=== PATIENT | male | born 1955 | race Caucasian/White ===

== ENCOUNTER 2020-10-31 06:08 | Outpatient (REF) | payer MEDICARE, SELFPAY ==
[2020-10-31 07:28] LABS: Alanine Aminotransferase 22 U/L (0-40); Albumin Level 4.2 g/dL (3.5-5.0); Alkaline Phosphatase 105 U/L (39-117); Aspartate Amino Transferase 26 U/L (5-37); Bilirubin Direct 0.4 mg/dL (0.0-0.5); Bilirubin Total 0.9 mg/dL (0.0-1.0); Cholesterol 96 mg/dL; HDL Cholesterol 29 mg/dL; LDL Cholesterol Calculated 44 mg/dl; Total Protein 6.9 g/dL (6.5-8.0); Triglycerides 115 mg/dL
[2020-10-31 09:27] LABS: Reflex LDLD? No
== END 2020-10-31 06:09 | disposition home or self-care (01) ==
LOC: HO.LAB 06:08
PROVIDERS: Visit Provider Internal Medicine
DX: E78.00 Pure hypercholesterolemia, unspecified (principal)
CPT/HCPCS: 36415; 80061; 80076

== ENCOUNTER 2021-03-07 10:45 | Outpatient (REF) | payer MEDICARE, SELFPAY ==
[2021-03-07 10:48] LABS: MANUAL DIFF FLAG NO
[2021-03-07 11:02] LABS: Basophils Absolute Auto 0.1 X10*3/uL (0.0-0.2); Basophils Percent Auto 0.7 % (0-2); Eosinophils Absolute Auto 0.2 X10*3/uL (0.0-0.4); Eosinophils Percent Auto 2.8 % (0-4); Hematocrit 46.5 % (42-52); Hemoglobin 15.1 g/dl (14.0-18.0); Imm Gran Abs Auto 0.01 X10*3/uL (0.00-0.03); Imm Gran Pct Auto 0.1 % (0.0-0.4); Lymphocytes Absolute Auto 1.9 X10*3/uL (1.2-4.9); Lymphocytes Percent Auto 27.9 % (20-40); Mean Corpuscular HGB Conc 32.5 g/dl (31.0-36.0); Mean Corpuscular Hemoglobin 30.8 pg (27.0-33.0); Mean Corpuscular Volume 94.9 fL (80-98); Mean Platelet Volume 12.3 fL (9.4-12.4); Monocytes Absolute Auto 0.6 X10*3/uL (0.1-1.2); Monocytes Percent Auto 9.3 % (2-11); Neutrophils Absolute Auto 3.9 X10*3/uL (2.0-8.3); Neutrophils Percent Auto 59.2 % (45-73); Platelet Count 167 X10*3/uL (160-400); Red Cell Distribution Width 12.7 % (11.0-16.0); White Blood Count 6.7 X10*3/uL (4.8-10.8)
[2021-03-07 11:15] LABS: Glucose Urine UA 250 MG/DL (NEG); Leukocyte Esterase Urine NEG (NEG); Nitrite Urine NEG (NEG); Specific Gravity - Urine 1.025 (1.005-1.025); Urine Blood NEG (NEG); Urine Ketones 5 MG/DL (NEG); Urine Protein NEG (NEG-TRACE)
[2021-03-07 11:19] LABS: Appearance Urine CLEAR; Color Urine YELLOW
[2021-03-07 11:47] LABS: Alanine Aminotransferase 24 U/L (0-40); Alkaline Phosphatase 97 U/L (39-117); Anion Gap 12 (12-20); Aspartate Amino Transferase 18 U/L (5-37); Bilirubin Total 0.4 mg/dL (0.0-1.0); Blood Urea Nitrogen 21 mg/dL (9-16); Calcium 9.6 mg/dL (8.4-10.2); Carbon Dioxide 26 mmol/L (22-29); Chloride 109 mmol/L (96-108); Cholesterol 97 mg/dL; Estimated Glomerular Filt Rate 41; Glucose Fasting 148 mg/dL (60-99); HDL Cholesterol 30 mg/dL; LDL Cholesterol Calculated 51 mg/dl; Sodium 143 mmol/L (135-145); Total Protein 6.6 g/dL (6.5-8.0); Triglycerides 81 mg/dL
[2021-03-07 12:25] LABS: Reflex LDLD? No
== END 2021-03-07 10:46 | disposition home or self-care (01) ==
LOC: HO.LNP 10:45
PROVIDERS: Visit Provider Internal Medicine
DX: Z00.00 Encounter for general adult medical examination without abnormal findings (principal); I10 Essential (primary) hypertension; E78.00 Pure hypercholesterolemia, unspecified; Z12.5 Encounter for screening for malignant neoplasm of prostate
CPT/HCPCS: 80053; 80061; 81003; 84153; 85025

== ENCOUNTER 2021-04-04 10:42 | Outpatient (REF) | payer MEDICARE, SELFPAY ==
[2021-04-04 12:08] LABS: Blood Urea Nitrogen 23 mg/dL (9-16); Estimated Glomerular Filt Rate 57
== END 2021-04-04 10:43 | disposition home or self-care (01) ==
LOC: HO.LNP 10:42
PROVIDERS: PCP Internal Medicine; Visit Provider Internal Medicine
DX: R79.9 Abnormal finding of blood chemistry, unspecified (principal)
CPT/HCPCS: 82565; 84520

== ENCOUNTER 2021-05-19 12:35 | Outpatient (REF) | payer MEDICARE, SELFPAY ==
[2021-05-19 13:45] LABS: Appearance Urine CLEAR; Color Urine YELLOW; Glucose Urine UA NEG (NEG); Leukocyte Esterase Urine NEG (NEG); Nitrite Urine NEG (NEG); PH 5.5 (5.0-8.0); Specific Gravity - Urine 1.025 (1.005-1.025); Urine Blood NEG (NEG); Urine Ketones NEG (NEG); Urine Protein NEG (NEG-TRACE)
== END 2021-05-19 12:36 | disposition home or self-care (01) ==
LOC: HO.LNP 12:35
PROVIDERS: Visit Provider Internal Medicine
DX: N40.0 Benign prostatic hyperplasia without lower urinary tract symptoms (principal); Z51.81 Encounter for therapeutic drug level monitoring; Z79.01 Long term (current) use of anticoagulants
CPT/HCPCS: 81003; 87086

== ENCOUNTER 2021-05-26 08:12 | Outpatient (REF) | payer MEDICARE, SELFPAY ==
--- NOTE | ~2021-05-26 | US_ITS ---
EXAMINATION: US ABDOMEN COMPLETE CLINICAL INFORMATION: Prostatism. Abdominal pain. COMPARISON: Renal ultrasound 11/13/2017 and 10/08/2012 TECHNIQUE: Real-time imaging of the abdominal viscera. FINDINGS: PANCREAS: The pancreas is obscured by overlying gas. ABDOMINAL AORTA: There is mild atherosclerotic plaque seen in the distal abdominal aorta. There is no aneurysmal dilatation. INFERIOR VENA CAVA: Visualized portions are normal. LIVER: The liver is normal in size. The liver contour is normal. There is increased liver echogenicity No focal hepatic lesion. There is no intrahepatic biliary duct dilatation seen. GALLBLADDER: The gallbladder is physiologically distended without evidence of stones, sludge, polyps or pericholecystic fluid. There is mild gallbladder wall thickening. COMMON BILE DUCT: Normal in caliber measuring 0.6 cm in diameter. RIGHT KIDNEY: There is anechoic cyst in the upper pole measuring 1.6 x 1.6 x 1.3 cm. No hydronephrosis or renal calculi. The kidney measures 10.6 cm in maximum dimension. LEFT KIDNEY: Normal. No hydronephrosis. No renal calculi or focal parenchymal lesions. The kidney measures 11.8 cm in maximum dimension. SPLEEN: Normal. The spleen measures 10.9 cm in maximum dimension. FREE FLUID: None. US/US abdomen complete IMPRESSION: Hepatic steatosis with mild focal sparing around the gallbladder. Anechoic cyst upper pole right kidney. Mild atherosclerotic plaque distal abdominal aorta.
--- NOTE | ~2021-05-26 | US_ITS ---
EXAMINATION: US PELVIS LIMITED (BLADDER) CLINICAL INFORMATION: BPH. COMPARISON: 10/08/2012 TECHNIQUE: Real-time imaging of the bladder. FINDINGS: BLADDER: Well distended and normal. Bilateral ureteral jets are demonstrated. Prevoid bladder volume is 234.4 mL. Postvoid bladder volume is 76.5 mL. PROSTATE: Enlarged significant with a volume of 47 mL. Enlarged median lobe. US/US bladder IMPRESSION: Enlarged prostate resulting in approximately 77 mL postvoid residual. No discrete lesion. Prominence of the median lobe. Normal ureteral jets seen bilaterally.
== END 2021-05-26 08:13 | disposition home or self-care (01) ==
LOC: HO.US 08:12
PROVIDERS: PCP Internal Medicine; Visit Provider Internal Medicine
DX: N40.0 Benign prostatic hyperplasia without lower urinary tract symptoms (principal)
CPT/HCPCS: 76700; 76857

== ENCOUNTER 2021-06-02 13:19 | Outpatient (REF) | payer MEDICARE, SELFPAY ==
[2021-06-02 14:17] LABS: Blood Urea Nitrogen 19 mg/dL (9-16); Estimated Glomerular Filt Rate > 60
== END 2021-06-02 13:20 | disposition home or self-care (01) ==
LOC: HO.LNP 13:19
PROVIDERS: Visit Provider Internal Medicine
DX: R79.9 Abnormal finding of blood chemistry, unspecified (principal)
CPT/HCPCS: 82565; 84520

== ENCOUNTER 2022-03-12 10:44 | Outpatient (REF) | payer MEDICARE, SELFPAY ==
[2022-03-12 10:48] LABS: MANUAL DIFF FLAG NO
[2022-03-12 11:07] LABS: Appearance Urine CLEAR; Color Urine YELLOW; Glucose Urine UA NEG (NEG); Leukocyte Esterase Urine NEG (NEG); Nitrite Urine NEG (NEG); Specific Gravity - Urine >= 1.030 (1.005-1.025); Urine Blood NEG (NEG); Urine Ketones NEG (NEG); Urine Protein NEG (NEG-TRACE)
[2022-03-12 11:08] LABS: Basophils Absolute Auto 0.1 X10*3/uL (0.0-0.2); Eosinophils Absolute Auto 0.2 X10*3/uL (0.0-0.4); Eosinophils Percent Auto 3.1 % (0-4); Hematocrit 45.3 % (42.0-52.0); Hemoglobin 14.9 g/dl (14.0-18.0); Imm Gran Abs Auto 0.02 X10*3/uL (0.00-0.03); Imm Gran Pct Auto 0.3 % (0.0-0.4); Lymphocytes Absolute Auto 1.7 X10*3/uL (1.2-4.9); Lymphocytes Percent Auto 28.4 % (20-40); Mean Corpuscular HGB Conc 32.9 g/dl (31.0-36.0); Mean Corpuscular Hemoglobin 30.5 pg (27.0-33.0); Mean Corpuscular Volume 92.8 fL (80.0-98.0); Mean Platelet Volume 12.2 fL (9.4-12.4); Monocytes Absolute Auto 0.5 X10*3/uL (0.1-1.2); Monocytes Percent Auto 8.9 % (2-11); Neutrophils Absolute Auto 3.6 x10*3/uL (2.0-8.3); Neutrophils Percent Auto 58.3 % (45-73); Platelet Count 178 X10*3/uL (160-400); Red Blood Count 4.88 X10*6/uL (4.60-5.80); Red Cell Distribution Width 13.3 % (11.0-16.0); White Blood Count 6.1 X10*3/uL (4.8-10.8)
[2022-03-12 11:22] LABS: Alanine Aminotransferase 23 U/L (0-40); Albumin Level 4.1 g/dL (3.5-5.0); Alkaline Phosphatase 96 U/L (39-117); Anion Gap 12 (12-20); Aspartate Amino Transferase 24 U/L (5-37); Bilirubin Total 0.8 mg/dL (0.0-1.0); Blood Urea Nitrogen 25 mg/dL (9-16); Calcium 9.4 mg/dL (8.4-10.2); Carbon Dioxide 23 mmol/L (22-29); Chloride 110 mmol/L (96-108); Cholesterol 85 mg/dL; Estimated Glomerular Filt Rate > 60; Glucose Fasting 142 mg/dL (60-99); HDL Cholesterol 27 mg/dL; LDL Cholesterol Calculated 44 mg/dl; Sodium 141 mmol/L (135-145); Total Protein 6.6 g/dL (6.5-8.0); Triglycerides 74 mg/dL
[2022-03-12 11:38] LABS: Mucus Urine 1+ /LPF; RBC Urine 0-2 /HPF (0); Squamous Epithelial Cell Urine TRACE /LPF; WBC Urine 0-2 /HPF (0-4)
[2022-03-12 11:43] LABS: PSA,Total (Free>4and<10) 0.87 ng/mL (0.00-4.00)
== END 2022-03-12 10:45 | disposition home or self-care (01) ==
LOC: HO.LNP 10:44
PROVIDERS: PCP Internal Medicine; Visit Provider Internal Medicine
DX: Z00.00 Encounter for general adult medical examination without abnormal findings (principal); Z12.5 Encounter for screening for malignant neoplasm of prostate; I10 Essential (primary) hypertension; E78.00 Pure hypercholesterolemia, unspecified; N40.0 Benign prostatic hyperplasia without lower urinary tract symptoms
CPT/HCPCS: 80053; 80061; 81001; 84153; 85025

== ENCOUNTER 2022-09-17 11:58 | Day surgery (SDC) | payer OTHER, SELFPAY ==
--- NOTE | 2022-09-14 12:32 | P.CONAN_ITS ---
Documented by User: Cindy Moore NP 09/14/22 13:09 HPI - Anesthesia Eval Consult details Narrative: 66yo M for Upper Endoscopy and Colonoscopy CABG 2011 - no longer follows cardiology, PCP only. No problems with CP/SOB at >4 mets per pt report. [facility] Past Medical History Medical History (Updated 09/14/22 @ 12:22 by Camila Scott, RN) 3-vessel CAD Barretts esophagus CAD (coronary artery disease) GERD (gastroesophageal reflux disease) HTN (hypertension) Surgical History Surgical History (Updated 09/14/22 @ 12:22 by Camila Scott RN) H/O colonoscopy H/O laminectomy H/O shoulder surgery History of inguinal hernia repair S/P foot surgery, left Social History Social History Patient Tobacco Use Status: Former Tobacco user Quit Date: 6 years ago Use of substances other than those prescribed or required for medical reasons: No Are you DNR?: No Advance Directives: No Advance Directives Information Provided: Yes Meds Allergies Allergy/AdvReac Type Severity Reaction Status Date / Time meperidine [From DEMEROL] Allergy Unknown N/V, Unverified 06/23/20 14:40 LIGHTHEADED Home Medications Medication Instructions Recorded Confirmed Last Taken Type aspirin 81 mg capsule mg 09/14/22 09/14/22 09/15/22 History atorvastatin 40 mg tablet 1 tab PO DAILY 09/14/22 09/14/22 Unknown History lisinopril 10 mg tablet 1 tab PO DAILY 09/14/22 09/14/22 Unknown History metoprolol tartrate 25 mg tablet 1 tab PO DAILY 09/14/22 09/14/22 09/17/22 History omeprazole 20 mg capsule,delayed 1 cap PO DAILY 09/14/22 09/14/22 Unknown History release tamsulosin 0.4 mg capsule 1 cap PO DAILY 09/14/22 09/14/22 Unknown History Exam Exam Date and Time: September 14, 2022 1232 Pertinent Lab Results Pertinent Lab Results: Laboratory Tests 03/12/22 03/12/22 Unknown Unknown WBC 6.1 Hgb 14.9 Hct 45.3 Plt Count 178 Sodium 141 Potassium 4.0 Chloride 110 H Carbon Dioxide 23 BUN 25 H Creatinine 1.19 Assessment and Plan Assessment Anesthesia Assessment: Chart Reviewed Documented by User: Aristeo Santiago MD 09/17/22 14:20 [facility] Past Medical History Medical History (Updated 09/14/22 @ 12:22 by Camila Scott RN) 3-vessel CAD Barretts esophagus CAD (coronary artery disease) GERD (gastroesophageal reflux disease) HTN (hypertension) Family History Family history of problems with anesthesia: No Surgical History Surgical History (Updated 09/14/22 @ 12:22 by Camila Scott RN) H/O colonoscopy H/O laminectomy H/O shoulder surgery History of inguinal hernia repair S/P foot surgery, left History of Problems with Anesthesia: No Social History Social History Patient Tobacco Use Status: Former Tobacco user Quit Date: 6 years ago Use of substances other than those prescribed or required for medical reasons: No Are you DNR?: No Advance Directives: No Advance Directives Information Provided: Yes Meds Allergies Allergy/AdvReac Type Severity Reaction Status Date / Time meperidine [From DEMEROL] Allergy Unknown N/V, Unverified 06/23/20 14:40 LIGHTHEADED Home Medications Medication Instructions Recorded Confirmed Last Taken Type aspirin 81 mg capsule mg 09/14/22 09/14/22 09/15/22 History atorvastatin 40 mg tablet 1 tab PO DAILY 09/14/22 09/14/22 Unknown History lisinopril 10 mg tablet 1 tab PO DAILY 09/14/22 09/14/22 Unknown History metoprolol tartrate 25 mg tablet 1 tab PO DAILY 09/14/22 09/14/22 09/17/22 History omeprazole 20 mg capsule,delayed 1 cap PO DAILY 09/14/22 09/14/22 Unknown History release tamsulosin 0.4 mg capsule 1 cap PO DAILY 09/14/22 09/14/22 Unknown History Exam Airway Mallampati Class: III TM Dist: >3cm Neck ROM: Full Loose/Missing/Broken Teeth: No Heart: rrr Lungs: clear Assessment and Plan Final Anesthetic Review Family History of Problems with Anesthesia: No History of Problems with Anesthesia: No NPO: Yes ASA Class: III Patient Risk: Intermediate Procedure Risk: Low Anesthetic Plan Anesthetic Plan: MAC: Disposition: Standard PACU
[2022-09-17 12:30] VITALS: BMI 27.8
[2022-09-17 12:33] VITALS: BP 179/83; PULSE 78; RESP 18; TEMP 37.1; O2SAT 97
[2022-09-17] MEDS: Lactated Ringers 1,000 ML 100 ML IVCONT (12:54)
[2022-09-17 15:37] VITALS: BP 144/55; PULSE 61; RESP 14; TEMP 36.6; O2SAT 100
--- NOTE | 2022-09-17 15:38 | PM.OP ---
Brief Operative Note Date of Service: 09/17/22 Pre-op diagnosis: Parra's, Screening Post-op diagnosis: other (Same, Parra's, Hiatal hernia, Polyps) Procedure: EGD with biopsies, Colonoscopy to the cecum with hot snare polypectomy x 4 with placement of resolution clips on each site x 1, except for 4 clips at site at 20cm Surgeon: Rosendo Weiner Anesthesia: MAC Was an Rice Dryer Mechanic used for this Procedure?: No Estimated blood loss (mL): 3.0 Pathology: other (A. Esophagus 37-38cm B. Ascending colon polyp C. Transverse colon polyp D. Polyps x 2 at 20cm) Condition: stable Disposition: PACU
[2022-09-17 15:52] VITALS: BP 151/65; PULSE 56; RESP 16; TEMP 36.8; O2SAT 96
[2022-09-17 16:10] VITALS: BP 152/57; PULSE 55; RESP 16; TEMP 37.2; O2SAT 97
--- NOTE | 2022-09-18 03:41 | OP_ITS ---
SURGEON: Rosendo Weiner MD INDICATIONS: The patient presents for evaluation of Parra's esophagus, personal history of tubular adenoma of the colon, and colorectal cancer screening. Full consent has been obtained from him for both procedures, including risks of bleeding and perforation. PREOPERATIVE DIAGNOSIS: POSTOPERATIVE DIAGNOSIS: PROCEDURE PERFORMED: Esophagogastroduodenoscopy with biopsies, and colonoscopy to the cecum with hot snare polypectomy x 4 and placement of resolution clips on each polypectomy site. ESTIMATED BLOOD LOSS: COMPLICATIONS: ANESTHESIA: Monitored anesthesia care. ASSISTANTS: SPECIMENS: PREOPERATIVE DIAGNOSES: Parra's esophagus, colorectal cancer screening, personal history of tubular adenoma of the colon. POSTOPERATIVE DIAGNOSES: Parra's esophagus, colorectal cancer screening, personal history of tubular adenoma of the colon, hiatal hernia, colon polyps, diverticulosis, and internal hemorrhoids. DESCRIPTION OF PROCEDURE: The patient was placed in the left lateral decubitus position. The Olympus video gastroscope was passed in the posterior oropharynx and upper esophagus under direct vision. The scope was passed slowly into the distal esophagus. The gastroesophageal junction appeared between 37 cm and 38 cm. There was some irregularity at this level as well as probable small less than 1 cm areas of Parra's mucosa. There was no esophagitis, ulceration, nor mass. There was a moderate-sized hiatal hernia. The scope was advanced to the pylorus, and the duodenum was cannulated to the descending portion. The duodenum including the bulb appeared normal without mass or ulceration. The scope was withdrawn back to the stomach. The gastric antrum and body appeared normal with good peristalsis. The scope was retroflexed visualizing the proximal stomach carefully, which appeared normal, without any sign of mass or ulceration. Scope was straightened and withdrawn back in the esophagus. Biopsies were obtained between 37 cm and 38 cm, just above the EG junction. Proximal to 37 cm, the esophageal mucosa appeared normal. The scope was withdrawn from the patient. He was turned around for the colonoscopy. The digital rectal exam revealed no abnormalities. The Olympus video pediatric colonoscope was entered into the rectum and advanced to the cecum with the assistance of abdominal wall pressure. Once in the cecum, I did identify normal-appearing cecal pouch with appendiceal orifice and a normal-appearing ileocecal valve. The entire cecum and ileocecal valve appeared normal. The scope was then slowly withdrawn assessing all mucosal surfaces carefully. Preparation was excellent. In the ascending colon was a flat but raised approximately 10 mm to 12 mm polyp, which was removed by hot snare polypectomy and recovered by suction. The polypectomy site appeared clean, without any sign of residual polyp nor bleeding. A single resolution clip was applied with good deployment and good hemostasis. In the transverse colon was an approximately 10 mm to 12 mm polyp, which was removed by hot snare polypectomy and recovered by suction. The polypectomy site appeared clean, without any sign of residual polyp nor bleeding. A single resolution clip was applied to the polypectomy site with good deployment and good hemostasis. At 20 cm were 2 polyps. One was approximately 8 mm in diameter and removed with a hot snare polypectomy and recovered by suction. The polypectomy site appeared clean, without any sign of residual polyp nor bleeding. A single resolution clip was applied with good deployment and good hemostasis. In the same area, was a larger approximately 12 mm polyp, which was removed by hot snare polypectomy and then recovered by suction. However, there was persistent bleeding from this polypectomy site. A total of 4 clips were applied to the polypectomy site with eventual good hemostasis. All clips deployed well. I did not visualize any other polyps, colitis, nor angiodysplasia. There was a mild amount of sigmoid diverticulosis. In the rectum, scope was retroflexed visualizing internal hemorrhoids but no other pathology. The rectal mucosa appeared normal. The scope was straightened and withdrawn from the patient. He tolerated both procedures well and was returned to the recovery area in stable condition. IMPRESSION: 1. Colon polyps. 2. Diverticulosis. 3. Internal hemorrhoids. 4. Hiatal hernia. 5. Gastroesophageal reflux and Parra's esophagus. PLAN: The results of the biopsies will be checked. He has been advised to continue his daily omeprazole. He was advised to resume his aspirin in 72 hours. He was advised not to use any NSAIDs for least 1 week. I would recommend a repeat upper endoscopy and colonoscopy in 3 years. He was advised to call me sooner as needed. This has all been discussed with his in detail and he was given instructions in this regard. MD FRANKIE Og/VIDAL / [phone] OLIVIA
== END 2022-09-17 16:10 | disposition home or self-care (01) ==
PROVIDERS: PCP Family Medicine; Visit Provider Internal Medicine
PROC: (CPT 45385; principal; 2022-09-17 13:40)
DX: Z12.11 Encounter for screening for malignant neoplasm of colon (principal); D12.2 Benign neoplasm of ascending colon; D12.3 Benign neoplasm of transverse colon; K63.5 Polyp of colon; K57.30 Diverticulosis of large intestine without perforation or abscess without bleeding; K64.8 Other hemorrhoids; Z86.010 Personal history of colon polyps; K22.70 Barrett's esophagus without dysplasia; K21.9 Gastro-esophageal reflux disease without esophagitis; K44.9 Diaphragmatic hernia without obstruction or gangrene; I10 Essential (primary) hypertension; I25.10 Atherosclerotic heart disease of native coronary artery without angina pectoris; Z79.82 Long term (current) use of aspirin; Z79.899 Other long term (current) drug therapy; Z95.1 Presence of aortocoronary bypass graft; Z88.5 Allergy status to narcotic agent
CPT/HCPCS: 45385; 43239; 88305

== ENCOUNTER 2025-03-08 09:58 | Outpatient (REF) | payer OTHER, SELFPAY ==
--- NOTE | ~2025-03-08 | XR_ITS ---
EXAMINATION: XR CERVICAL SPINE 4-5 VIEWS HISTORY: M54.2 - Cervicalgia COMPARISON: There are no prior studies available for comparison. FINDINGS: AP, and neutral, flexion, and extension lateral views of the cervical spine are submitted. Osseous mineralization is normal. The patient is status post laminectomy from C3 through C6. The vertebral bodies maintain normal height. Alignment is anatomic. There is severe degenerative disc disease from C5 through C7 with disc space narrowing and osteophyte formation. Milder changes are noted at the remaining levels. There is no abnormal motion with flexion or extension. There is no prevertebral soft tissue swelling. Calcifications in the neck bilaterally are likely related to the internal carotid arteries. XR/XR cervical spine 4V IMPRESSION: 1. Status post laminectomy from C3 3 through C6. Severe degenerative disc disease. 2. No abnormal motion with flexion or extension. Electronically signed by: Rosendo Brown MD 03/09/2025 07:38 AM EDT
--- NOTE | ~2025-03-08 | XR_ITS ---
EXAMINATION: XR LUMBAR SPINE 4 OR MORE VIEWS HISTORY: M54.9 - Dorsalgia, unspecified COMPARISON: There are no prior studies for comparison. FINDINGS: AP, and neutral, flexion, and extension lateral views of the lumbar spine are submitted. Osseous mineralization is normal. Five nonrib-bearing lumbar vertebral bodies are identified, maintaining normal height without evidence of fracture. There is moderate levoscoliosis. There is slight retrolisthesis of L2 on L3 and L3 on L4, and slight anterolisthesis of L4 on L5. There is no change in flexion or extension. There is severe degenerative disc disease with disc space narrowing and osteophyte formation. There is calcification of the abdominal aorta. XR/XR lumbar spine 4V min IMPRESSION: 1. Moderate levoscoliosis. Severe degenerative disc disease as described. 2. Slight retrolisthesis of L2 on L3 and L3 on L4, and slight anterolisthesis of L4 on L5. There is no change in flexion or extension. Electronically signed by: Rosendo Brown MD 03/09/2025 07:36 AM EDT
== END 2025-03-08 09:59 | disposition home or self-care (01) ==
LOC: HO.HOSX 09:58
PROVIDERS: PCP Family Medicine; Referring Provider Family Medicine; Visit Provider Physician Assistant
DX: M54.2 Cervicalgia (principal); M54.50 Low back pain, unspecified; G89.29 Other chronic pain; M96.1 Postlaminectomy syndrome, not elsewhere classified
CPT/HCPCS: 72050; 72110; 99202

== ENCOUNTER 2025-03-08 09:58 | Outpatient (AMB) | payer OTHER, SELFPAY ==
--- NOTE | 2025-03-08 11:02 | A.SPINEOV_ITS ---
Intake Visit Reasons: Neck pain Intake Note: Mr. Rashid is here today c/o neck pain. MRI done @ [facility] (brought disc). Specimen Processor Required: No Allergies meperidine [From DEMEROL] Allergy (Unknown, Unverified 06/23/20 14:40) N/V, LIGHTHEADED Assessment & Plan Assessment & Plan (1) Neck pain: Code(s): M54.2 - Cervicalgia Category: Medical (2) Back pain: Code(s): M54.9 - Dorsalgia, unspecified Category: Medical Plan Dear Dr Mccauley, Thank you for referring Mr Rashid to our office today. 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 Estrada C3-C6 back in 2016. The patient presents for evaluation of 2 separate issues. The 1st he has had a persistent neck pain ever since the surgery. It is particularly worse when he looks down with his head in a flexed position. It will bother him from time to time, but generally it is aggravated with any kind of activity with his head. He has limited range of motion side to side as well. He has no new myelopathic complaints. The 2nd issue is that he has had chronic low back pain for years with superimposed difficulty walking any distance. He has a fatigue and a discomfort in his legs which limits his ability to go far distances. He and his used to walk 4 miles and she would have a hard time keeping up with him, but now he can no longer do the walks. Even doing short distances is difficult. He recently had a flare-up of sciatica which was quite intense but that went away on its own. He has been through conservative treatment in the forms of physical therapy, chiropractic as well as cortisone injections. He has taken things like tramadol and Tylenol, [id number] anti-inflammatories etc.. He comes in today with an MRI showing severe degenerative disc disease in his lumbar spine with severe stenosis. PMH: He has a history of hypertension, coronary disease, status post coronary artery bypass grafting 10 years ago and has been stable since that time with no recurrence of chest pain and shortness of breath. He is prediabetic, history of high cholesterol, Parra's esophagitis, hernia repair, 2 shoulder surgeries, Mo rton's neuroma removed from his foot. There is report of COPD in his chart as well but the patient quit smoking 10 years ago and does not use any inhalers. He has no history of any significant liver, renal disease, blood clots, bleeding disorders, cancer or major abdominal surgery. Social hx: He does not smoke, he quit 10 years ago, does not use any marijuana or alcohol. Medications: Amlodipine, atorvastatin, baclofen, lisinopril, metoprolol, omeprazole, tadalafil, baby aspirin Allergies: Demerol and hydrochlorothiazide Physical exam: He is awake alert oriented no acute distress, he is a very difficult time standing up, very difficult time getting into a vertical upright posture. He has good strength throughout all upper and lower extremities but does have signs of increased tone with spasticity and hyperreflexia suggestive of his old myelopathy. He has a well healed scar in the back of his neck. Imaging review: Lumbar MRI and cervical MRI done at [facility] show that he has e vidence of postsurgical changes C3-C6 with myelomalacia seen at the previously operated area of C3-4 consistent with his old spinal cord compression. There is currently no spinal cord compression seen on his current cervical MRI. He does have disc collapse at the lower cervical levels which has worsened since 2016. With regard to the lumbar spine, he has severe disc collapse at L3-4 amongst mod erate disc collapse at L4-5 and L3-4. 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 Estrada in 2016 for cervical myelopathy presents for evaluation of back pain and neck pain. With regard to the neck pain, obviously with the amount of surgery that was done in the back of his neck he is going to have some degree of neck pain for the rest of his life. He does have progression of the degeneration in the mid to lower cervical disc levels and this can be sometimes the source of neck pain. I explained to him that Dr. Estrada can do surgery to fix this, but he would need to understand that the outcomes would not be as optimal as that would be in someone who has never had a big neck surgery like he has had previously. He understands this and I think for the most part that pain is somewhat manageable so I do not think he is leaning in the direction of surgery for that. With regard to his lumbar spine however, I think this is really what is disabling him. In terms of the back pain and the progressive weakness down his legs, this all seems to fit with his disc degeneration and stenosis. We need to make a distinction however between the back pain and the stenosis symptoms going down the legs. Usually Dr. Estrada will do spinal fusion if the intent is to fix the back pain and the trouble walking. If it is strictly just to help him walk better and stand up straighter, a simple decompression will do the job. There is a bit of new wants to this and we will need some upright x-rays to evaluate if there is any occult instability. I will obtain the x-rays and have the patient come back in the office and we can sit down with him with Dr. Estrada and go over the best surgical options for him. Thank you for allowing us to care for your patient. The total time spent with this visit with this patient was 65 minutes reviewing history, physical exam, cervical and lumbar imaging review, and implementation of treatment plan or further diagnostic testing Don Estrada MD,PhD [facility] Orders: Orders XR cervical spine 4V Today M54.2 - Cervicalgia XR lumbar spine 4V min Today M54.9 - Dorsalgia, unspecified Coding Level of Care Code New Pt Level 5 (13217) Diagnoses Neck pain M54.2 Back pain M54.9
== END 2025-03-08 13:16 | disposition home or self-care (01) ==
LOC: HO.HNS 09:58
PROVIDERS: PCP Family Medicine; Referring Provider Family Medicine; Visit Provider Physician Assistant
DX: M54.2 Cervicalgia (principal); M54.9 Dorsalgia, unspecified
CPT/HCPCS: 99205

== ENCOUNTER → 2025-03-08 11:40 | Outpatient (BNV) | payer OTHER, SELFPAY | PROVIDERS: PCP Family Medicine; Referring Provider Family Medicine; Visit Provider Radiology Diagnostic Radiology | DX: M54.2 Cervicalgia (principal); Z98.890 Other specified postprocedural states; M41.86 Other forms of scoliosis, lumbar region; M51.360 Other intervertebral disc degeneration, lumbar region with discogenic back pain only | CPT/HCPCS: 72050; 72110 ==

== ENCOUNTER 2025-03-25 14:50 | Outpatient (AMB) | payer OTHER, SELFPAY ==
--- NOTE | 2025-03-25 14:55 | A.SPINEOV_ITS ---
Intake Visit Reasons: surgical discussion Intake Note: Mr. Rashid is here today to Discuss Surgical Options. Pattern Mechanic Required: No Allergies meperidine (From DEMEROL) Allergy (Unknown, Unverified 06/23/20 14:40) N/V, LIGHTHEADED Assessment & Plan Assessment & Plan (1) Scoliosis of lumbar region due to degenerative disease of spine in adult: Code(s): M41.56 - Other secondary scoliosis, lumbar region Category: Medical (2) Neurogenic claudication due to lumbar spinal stenosis: Code(s): M48.062 - Spinal stenosis, lumbar region with neurogenic claudication Category: Medical Plan Dear colleague, On 03/25/2025 I had a surgical consult with a Rosendo Rashid. He was previously seen by my PA, Don Marie and diagnosed with intractable low back pain and neurogenic claudication. A standing lumbar x-ray showed lumbar degenerative scoliosis from L2-5 and severe degenerative disc disease, especially at L2-3. An MRI of the lumbar spine confirmed the lumbar degenerative scoliosis but also showed associated severe lumbar spinal stenosis L2-3, L3-4 and L4-5. Today we had a discussion about possible surgical intervention. As stated before, this patient has intractable low back pain that has not responded to physical therapy or other conservative management, including the chiropractor. A 3 level minimally invasive lumbar fusion seems to be the most appropriate plan as this will correct the spinal deformity and indirectly decompress the spinal canal. In other words, the goal of the surgery will be to treat his back pain(65% success rate) and neurogenic claudication(80% success rate). I do not think that a simple lumbar decompression of the 2 2 L5 levels will be beneficial. First this will not address his back pain and secondly the effect on the neurogenic claudication symptoms will be short lasted due to progression of the degenerative scoliosis. He has interesting pursuing surgery. I explained the procedure, an oblique lumbar interbody fusion. He will be in the hospital 1-2 days. We had an extensive discussion about expected postoperative course with him and his . He will call my office for a surgical date. He needs to stop his baby aspirin 1 week prior to surgery. He is scheduled to get a annual physical in May, so it makes sense to schedule the surgery after the clearance is done. I spent 45 minutes in his consult to review imaging and di scussing plan of care. Eliel Estrada MD, PhD Spine [facility] Trained Neurosurgeon Director, [facility] Coding Level of Care Code Est Pt Level 5 (05741) Diagnoses Scoliosis of lumbar region due to degenerative disease of spine in adult M41.56 Neurogenic claudication due to lumbar spinal stenosis M48.062
== END 2025-03-25 15:57 | disposition home or self-care (01) ==
LOC: HO.HNS 14:50
PROVIDERS: PCP Family Medicine; Visit Provider Neurological Surgery
DX: M41.56 Other secondary scoliosis, lumbar region (principal); M48.062 Spinal stenosis, lumbar region with neurogenic claudication
CPT/HCPCS: 99215

== ENCOUNTER → 2025-03-25 14:50 | Outpatient (BNVA) | payer OTHER, SELFPAY | PROVIDERS: PCP Family Medicine; Visit Provider Neurological Surgery | DX: M48.062 Spinal stenosis, lumbar region with neurogenic claudication (principal); M41.56 Other secondary scoliosis, lumbar region | CPT/HCPCS: 99212 ==

== ENCOUNTER 2025-06-16 06:08 | Inpatient (IN) | payer OTHER, SELFPAY ==
[2025-06-02 10:07] VITALS: BP 154/72; PULSE 60; RESP 20; O2SAT 99; BMI 29.1
--- NOTE | 2025-06-02 10:24 | HO.ANESPROP2 ---
Documented by User: Cindy Moore NP 06/02/25 10:39 HPI - Anesthesia Eval Consult details Narrative: 69yo M for L2-3, L3-4, L4-5 Oblique Lumbar Interbody Fusion, 06/16/25 Medically optimized per PCP at [facility] No recent illness No CP/SOB with walking on treadmill (~ 2miles daily) CAD s/p CABG x 3 2011 - now only follows with PCP DM: Diet controlled GERD: ppi controls (hx erosive esophagitis d/t chemical exposure in ) [facility] Active Problems Active Problems: All Active Problems Neurogenic claudication due to lumbar spinal stenosis (Acute) Scoliosis of lumbar region due to degenerative disease of spine in adult (Acute) Neck pain (Acute) Back pain (Acute) Past Medical History Medical History (Updated 06/16/25 @ 07:06 by Lisa Kline RN) Myocardial infarct White coat syndrome with hypertension Chest pain Skin cancer Coronary arteriosclerosis Diabetes Hiatal hernia Back pain Cervicalgia BPH (benign prostatic hyperplasia) Erectile dysfunction Pulmonary emphysema Elevated cholesterol HTN (hypertension) Barretts esophagus GERD (gastroesophageal reflux disease) Family History Family history of problems with anesthesia: No Surgical History Surgical History (Updated 06/16/25 @ 06:21 by Lisa Kline RN) History of open heart surgery History of esophagogastroduodenoscopy (EGD) Hx of cervical spine surgery Hx of coronary artery bypass graft S/P foot surgery, left History of inguinal hernia repair H/O shoulder surgery H/O colonoscopy History of Problems with Anesthesia: No Social History Social History Are you a primary elderly caregiver to a significant other at home: No Do you presently have visiting nurse or other home services: No Comment: advised of trip hazard Patient Tobacco Use Status: Former Tobacco user Tobacco use type: Cigarette Years Smoked: 40 Use of substances other than those prescribed or required for medical reasons: No Have you been hit, kicked, punched, or otherwise hurt by someone within the past year? If so, by whom?: No Spiritual Healthcare Practices: no Voodoo Healthcare Practices: no Cultural Healthcare Practices: no Are you DNR?: No Advance Directives on File: No Poor oral hygiene: No Meds Allergies Allergy/AdvReac Type Severity Reaction Status Date / Time meperidine (From DEMEROL) Allergy Intermediate nausea/vomi Verified 06/16/25 06:49 ting/lighth eadedness hydrochlorothiazide Allergy Unknown Unknown Verified 06/02/25 09:59 per [facility] Home Medications ?Medication ?Instructions ?Recorded ?Confirmed ?Last Taken ?Type aspirin 81 mg capsule 81 mg PO QAM 09/14/22 06/16/25 06/14/25 History omeprazole 20 mg capsule,delayed 1 cap PO QAM 09/14/22 06/02/25 06/16/25 History release tamsulosin 0.4 mg capsule 1 cap PO BEDTIME 09/14/22 06/02/25 06/15/25 History amlodipine 5 mg tablet 5 mg PO BEDTIME 06/01/25 06/02/25 06/15/25 History atorvastatin 80 mg tablet 40 mg PO BEDTIME 06/01/25 06/02/25 06/15/25 History lisinopril 40 mg tablet 40 mg PO QAM 06/01/25 06/02/25 06/15/25 History metoprolol succinate 50 mg 50 mg PO QAM 06/01/25 06/02/25 06/16/25 History tablet,extended release 24 hr tadalafil 20 mg tablet 20 mg PO DAILY PRN Erectile 06/01/25 06/02/25 Unknown History Dysfunction Exam Height,Weight and Vital Signs: Height 6 ft 1 in Weight 100 kg Last Vital Signs Pulse 60 06/02/25 10:07 Resp 20 06/02/25 10:07 BP 154/72 H 06/02/25 10:07 Pulse Ox 99 06/02/25 10:07 O2 Del Method Room Air 06/02/25 10:07 Pertinent Lab Results Pertinent Lab Results: CBC and BMP and [facility] [place] Narrative Narrative: EKG 05/2025 SB @ 52 Airway Mallampati Class: II TM Dist: >3cm Neck ROM: Limited (cspine surgery ~ 10 years ago) Denture: Upper and Lower Heart: RRR Lungs: CTAB Assessment and Plan Assessment Anesthesia Assessment: Anesthesia Plan Discussed and PAT Visit Final Anesthetic Review Family History of Problems with Anesthesia: No History of Problems with Anesthesia: No Documented by User: Nehal Montana MD 06/16/25 07:13 [facility] Past Medical History Medical History (Updated 06/16/25 @ 07:06 by Lisa Kline, LIANG) Myocardial infarct White coat syndrome with hypertension Chest pain Skin cancer Coronary arteriosclerosis Diabetes Hiatal hernia Back pain Cervicalgia BPH (benign prostatic hyperplasia) Erectile dysfunction Pulmonary emphysema Elevated cholesterol HTN (hypertension) Barretts esophagus GERD (gastroesophageal reflux disease) Surgical History Surgical History (Updated 06/16/25 @ 06:21 by Lisa Kline RN) History of open heart surgery History of esophagogastroduodenoscopy (EGD) Hx of cervical spine surgery Hx of coronary artery bypass graft S/P foot surgery, left History of inguinal hernia repair H/O shoulder surgery H/O colonoscopy Social History Social History Are you a primary elderly caregiver to a significant other at home: No Do you presently have visiting nurse or other home services: No Comment: advised of trip hazard Patient Tobacco Use Status: Former Tobacco user Tobacco use type: Cigarette Years Smoked: 40 Use of substances other than those prescribed or required for medical reasons: No Have you been hit, kicked, punched, or otherwise hurt by someone within the past year? If so, by whom?: No Spiritual Healthcare Practices: no Voodoo Healthcare Practices: no Cultural Healthcare Practices: no Are you DNR?: No Advance Directives on File: No Poor oral hygiene: No Meds Allergies Allergy/AdvReac Type Severity Reaction Status Date / Time meperidine (From DEMEROL) Allergy Intermediate nausea/vomi Verified 06/16/25 06:49 ting/lighth eadedness hydrochlorothiazide Allergy Unknown Unknown Verified 06/02/25 09:59 per patient-[facility] Home Medications ?Medication ?Instructions ?Recorded ?Confirmed ?Last Taken ?Type aspirin 81 mg capsule 81 mg PO QAM 09/14/22 06/16/25 06/14/25 History omeprazole 20 mg capsule,delayed 1 cap PO QAM 09/14/22 06/02/25 06/16/25 History release tamsulosin 0.4 mg capsule 1 cap PO BEDTIME 09/14/22 06/02/25 06/15/25 History amlodipine 5 mg tablet 5 mg PO BEDTIME 06/01/25 06/02/25 06/15/25 History atorvastatin 80 mg tablet 40 mg PO BEDTIME 06/01/25 06/02/25 06/15/25 History lisinopril 40 mg tablet 40 mg PO QAM 06/01/25 06/02/25 06/15/25 History metoprolol succinate 50 mg 50 mg PO QAM 06/01/25 06/02/25 06/16/25 History tablet,extended release 24 hr tadalafil 20 mg tablet 20 mg PO DAILY PRN Erectile 06/01/25 06/02/25 Unknown History Dysfunction Assessment and Plan Final Anesthetic Review NPO: Yes ASA Class: III Final Preanesthetic Review: No Changes in Pt Med Stat, Meds/Allgs Chart Reviewed and Consent Obtained/Reviewed Patient Risk: Intermediate Procedure Risk: Intermediate Anesthetic Plan Anesthetic Plan: GA Disposition: Standard PACU
[2025-06-16] VITALS (12 sets, daily range): BP systolic 124–167; BP diastolic 61–97; PULSE 60–94; RESP 12–20; TEMP 36.1–37.5; O2SAT 93–97; BMI 28.6
--- NOTE | ~2025-06-16 | FL_ITS ---
EXAMINATION: FL GUIDANCE ONLY HISTORY: L2-5 OLIF COMPARISON: Correlation is made with plain films of the lumbar spine dated 03/08/2025. TECHNIQUE: Fluoroscopy time: 39.7 seconds. Cumulative Dose: 193.27 mGy. DAP: 56.534 mGym2 Images: 6. FINDINGS: Fluoroscopic spot films of the lumbar spine demonstrate posterior fusion of L2-L5 with pedicle screws, spinal stabilization rods, and intervertebral spacers. FL/FL guidance in OR IMPRESSION: Fluoroscopy during procedure. Please see procedure report for additional information. Electronically signed by: Rosendo Brown MD 06/16/2025 12:34 PM EDT
--- NOTE | 2025-06-16 06:55 | MHC.SHP ---
Pre-Procedural Eval Section A - 24 Hr Update-Section A only Date of Service: 06/16/25 Section B - Complete if H&P > 30 days Chief Complaint: lumbar fusion surgery Allergies: Allergies Allergy/AdvReac Type Severity Reaction Status Date / Time meperidine (From DEMEROL) Allergy Intermediate nausea/vomi Verified 06/16/25 06:49 ting/lighth eadedness hydrochlorothiazide Allergy Unknown Unknown Verified 06/02/25 09:59 per patient-[facility] Review of Systems Sugical H&P ROS: Negative: Constitution, Cardiovascular, Respiratory, Neurological, Psychiatric, Hem-Onc, Allergic/Immunologic, Gastrointestinal, Genitourinary, Musculoskeletal, Integumentary, Endocrine and Eyes/Ears/Nose/Throat Exam Surgical H&P Exam: Not Evaluated: HEENT, Not Evaluated: Heart, Not Evaluated: Lungs, Not Evaluated: Extremities, Not Evaluated: Abdomen, Not Evaluated: Skin and Not Evaluated: Neurological Exam Comment: The patient is awake, alert, no acute distress proposed surgical incision site is clean, dry, with no signs of recent trauma Plan Diagnosis/Plan: Unchanged I have reviewed the history and physical and performed a pertinent physical examination on my patient. No changes have occurred unless specified. Plan remains the same, L2-5 OLIF. Time Spent With Patient Time: Total time managing care of this patient today __7__ minutes.
[2025-06-16] MEDS: Lactated Ringers 1,000 ML 100 ML IVCONT (07:03)
--- NOTE | 2025-06-16 07:03 | PC.NURSE ---
MD SHELLEYS AWARE OF PATIENTS USE OF ASA ON SATURDAY 81MG.
--- NOTE | 2025-06-16 12:01 | P.OP_ITS ---
Operative Note Operative Note Date of Service: 06/16/25 Narrative: Preop Diagnosis: 1.) Lumbar degenerative scoliosis and intractable low back pain 2.) Lumbar spinal stenosis with neurogenic claudication Procedure: 1) L3-4, L4-5 discectomy, arthrodesis and implantation cage through an anterolateral, retroperitoneal approach (OLIF) 2) L2-3 oblique lateral lumbar interbody fusion ( trans Kambin) with discectomy, preparation of the endplates and placement of a titanium bullet cage packed with allograft, anterior to the transverse process in modified prone position, with intraoperative biplanar fluoroscopy imaging. 2) L2-L5 posterior instrumented fusion 3) allograft 4) Injection of 10 cc of Exparel at the transverse process for a muscular erector spinae block and additional Exparel in paravertebral tissue for postop management Consent Informed Consent was obtained for this operation. I have explained the nature, purpose and benefits of the operation. I have discussed the risks and benefit of the operation including possible complications or adverse events with patient/family. Alternative(s) were discussed with the patient with their relative benefits and risks as well as the consequences of not accepting the operation were included in obtaining consent. Surgeon: LENIN MORALES MD, PHD Procedure Assisted By: ALEXEY Lund Description of Procedure This patient is suffering from intractable low back pain and neurogenic claudication symptoms. Imaging reviews a lumbar degenerative scoliosis L2-L5, central spinal stenosis at L3-4 and L4-5 The patient was offered an oblique lumbar interbody fusion L2-3, L3-4 and L4-5. The procedure and complications were explained. The patient was consented. The patient was brought to the operating room and endotracheally intubated. The patient was turned in a lateral position with the left side up. Prep and drape was done followed by timeout. A small incision was made in the left lower abdominal quadrant. The muscle fascia was opened after which the 3 muscle layer was split to enter the retroperitoneal space. Dilators were docked in the anterior one third of the L4-5 disc space followed by a retractor. The retractor was opened. The L4-5 disc space was exposed. An annulotomy was done after which an elevator Saldana was used to release the disc material from its endplates and to perforate the contralateral side. A partial discectomy was done. An 8 mm and 10 mm height trial implant was inserted. The discectomy was completed. The endplates were prepared. An 12 x 50 mm with 6 degree lordosis 4 web cage filled with allograft was inserted into the disc space under fluoroscopic guidance. Then attention was turned to the L3-4 level where similar procedure as on L4-5. When the diskectomy was completed and the endplates were prepared, a 10 x 50 and a 0 degree lordosis 4 web cage filled with allograft was inserted into the disc space. This resulted in near complete correction of the scoliosis. The ribcage and diaphragm prevented me from doing L2-3 through this approach. I decided to do the L3-4 level through a trans Kambin approach which will be described below. The retractor was removed. Hemostasis was done. The incision was closed in 2 layers. Steri-Strips used to approximate incision. An OpSite with Tegaderm was used to cover the incision. This marked first part of the procedure. The patient was turned prone on the Jerald spine table. 2C arms were installed for fluoroscopy. Prep and drape was done followed by a second timeout. The following steps are taken for each specified level: L2-3 level: Cage size 10 mm high and 33 mm long titanium . The patient was turned using the rotation of the surgical table so a near direct anterior lateral approach to the lumbar spine could be achieved. A small incision was then made superior to the mid iliac crest and then using biplanar fluoroscopy visualization, we introduced an spinal needle that was docked on the superior medial border of the L3 pedicle under fluoroscopic guidance through the retroperitoneal, anterior to the transverse process . A sleeve was advanced over the spinal needle and the needle was removed. A K-wire was inserted, which was passed sequentially into the disc space. A dilating tube was then passed along the same route. Following this, a working channel, a working channel was then passed sequentially into the disc space. The working channel was manually held in position while a series of disc cleaning tools were passed through the channel to remove the affected disc under clear and direct biplanar fluoroscopic visualization, decompress the nerve roots and equal corticated vertebral endplates at this segment. Arthrodesis of the intervertebral space via an anterior retroperitoneal exposure was achieved through Kambin's [place] and lateral extraforaminal space. Allograft was added into the anterior disc space. The working channel was then removed. A titanium interbody cage tightly packed with allograft was then inserted into the midportion of the intervertebral disc space over a K-wire u nder biplanar fluoroscopic visualization. The inter pedicular and intradiscal space was significantly enlarged and disc height was restored to worked normal anatomy there for releasing pressure on the nerve roots visual largely the spinal canal and lateral recess as well as foramen were bilateral decompressed and all bones were confined to the borders of the disc space . Then attention was turned to the L2-L5 posterior instrumented fusion. First, injection of 10 cc of Exparel at the bilateral L3 transverse processi for a muscular erector spinae block. A total of 3 bilateral paramedian incisions were made lateral from the L2-L5 pedicles. The muscle fascia was opened after which the muscle layer was split bluntly to expose the posterolateral gutter. The following steps were taken. A pediguard tap was used to create a transpedicular trajectory into the vertebral body. A K wire was placed. A specially designed instrument was advanced over the K wire to decorticate the posterolateral gutter in preparation for the posterolateral fusion. A pedicle screw was advanced over the K wire and the K wire was removed. The steps were done for the bilateral L2- L5 pedicles. A total of 8 screws were placed with a diameter of 6.5 x 45 mm in the bilateral L2 and L3 pedicles and 6.5 x 50 mm in the bilateral L4 and L5 pedicles. Pedicle screws were connected with 110 mm iglesia bilaterally and locked down with locking caps. The extension towers were removed. The posterolateral gutter was filled with allograft to complete the posterolateral L2-L5 fusion Hemostasis was done and the incision was closed in 2 layers. Steri-Strips were used to approximate the incision. An OpSite with tegaderm was used to cover the incision. All sponge and needle counts were correct. Patient was extubated and transferred in stable is to recovery room. Anesthesia: General Estimated Blood Loss (ml): 100 Duration of Surgery: 4 hours Complications: None Postoperative Plan: Admit to inpatient for clinical observation
[2025-06-16] MEDS: Metoprolol Succinate ER 50 MG TAB.ER.24H PO (14:28)
[2025-06-16] MEDS: oxyCODONE HCl Immed Release 5 MG TABLET 10 MG PO (15:47)
--- NOTE | 2025-06-16 16:42 | PHA.MEDREC ---
Addendum entered by Tobias Hinton, Alvaro 06/16/25 18:06: MED REC CHECKED BY [facility] Addendum entered by Coleen Osman 06/16/25 16:43: Patient is no longer taking Baclofen 10 mg, Flonase, and Mupirocin 2% oint. Original Note: Pharmacy Consult ? Medication Reconciliation Pharmacy has reviewed the medication reconciliation done by nursing. Spoke to patient and at bedside to confirm med list. has a list of patient medications. [facility] to confirm med list.
[2025-06-17 03:24] VITALS: BP 129/62; PULSE 71; RESP 16; TEMP 36.2; O2SAT 93
[2025-06-17 07:25] VITALS: BP 136/65; PULSE 75; RESP 14; TEMP 37.3; O2SAT 93
[2025-06-17] MEDS: Metoprolol Succinate ER 50 MG TAB.ER.24H PO (07:30)
--- NOTE | 2025-06-17 09:39 | PM.DS ---
DS: Providers Provider Date of Service: 06/17/25 Date of admission: 06/16/25 06:08 Date of discharge: 06/17/25 Primary care physician: Leatha Mccauley MD DS: Summary Time Attestation Discharge Coordination Time (in mins): 12 Quality: Safe Use of Opioids Does Pt have an Active Cancer Diagnosis on the Problem List?: No Quality: Stroke Does the patient have a stroke diagnosis?: No Physical Exam Vital Signs: Vital Signs: Last Vital Signs Temp 99.2 F 06/17/25 07:25 Pulse 75 06/17/25 07:25 Resp 14 06/17/25 07:25 BP 136/65 06/17/25 07:25 Pulse Ox 93 06/17/25 07:25 O2 Del Method Room Air 06/17/25 07:25 O2 Flow Rate 8 06/16/25 12:21 BMI result Body Mass Index 28.6 Discharge Plan Discharge Anticipated Discharge Date/Time: 06/17/25 09:40 Patient Disposition: Home Health Service Discharge Diagnosis: s/p L2-5 Lumbar Fusion Referrals: Leatha Mccauley MD [Primary Care Provider, Internal Medicine] - 1 Week Discharge Medications: New oxycodone 5 mg tablet See Rx Instructions .ROUTE .COMPLEX PRN (Reason: pain) Qty: 42 0RF Rx Instructions: Take 1-2 tablets by mouth every 4 hours; Partial Fill upon patient request. docusate sodium 100 mg capsule 100 mg PO BID PRN (Reason: constipation) Qty: 14 0RF gabapentin 300 mg capsule 300 mg PO TID Qty: 30 1RF Continued tamsulosin 0.4 mg capsule 1 cap PO BEDTIME omeprazole 20 mg capsule,delayed release(DR/EC) 1 cap PO QAM atorvastatin 80 mg Tablet 40 mg PO BEDTIME metoprolol succinate 50 mg Tablet Extended Release 24 Hr 50 mg PO QAM amlodipine 5 mg Tablet 5 mg PO BEDTIME lisinopril 40 mg Tablet 40 mg PO QAM tadalafil 20 mg Tablet 20 mg PO DAILY PRN (Reason: Erectile Dysfunction) Rx Instructions: administer approximately 30min before sexual activity; do not use more than 1 dose per 24hrs Held aspirin 81 mg Capsule 81 mg PO QAM Hold Instructions: Resume on 06/22/25. Discharge Orders: Discharge Order (Routine); Ordered 06/17/25 Ordered By: Rivera Pitrat Diet: Advance to usual diet Activity on Discharge: As tolerated Stand Alone Forms: Patient Portal Discharge page Print Language: Upper Sorbian Activity Restrictions/Additional Instructions: After your spinal surgery we ask you to observe the following restrictions/guidelines: Activity: It is normal to feel some discomfort as you increase your activity, but that will improve with time. We ask you avoid heavy lifting or acitivities that cause pain. As a general rule, 8lbs is a safe limit for lifting right after surgery. Walk as much as you feel comfortable but not to exhaustion. You will feel extra tired the first few days after surgery. Stay well hydrated. It is OK to walk up and down stairs You may return to driving when you are off narcotics (such as vicodin, oxycodone, dilaudid, etc), and you are back to normal functional capacity. If you have any concerns please check with office before driving. Return to work is specific to each patient and each surgery, so please speak with your doctor/PA at first follow up. Please bring paperwork such as FMLA at that time if you need it filled out. Medications: Please do not restart your aspirin until at least 5 days after surgery. We recommend you take 1,000mg Tylenol every 8 hours for the first few weeks after surgery, if you do not have any liver issues and can tolerate this medication. Do not exceed 4,000mg daily. We will give you a short supply of narcotics after surgery (usually one weeks worth). If you need more please call the office but do not use more than prescribed. You will need to give our office 48 hours notice if you need narcotics refilled and we do not fill narcotics on weekends or evenings. If you are on a narcotic, it is a good idea to take a stool softener such as colace or senna to avoid constipation If you take blood thinner such as aspirin, Plavix, Coumadin, Effient, Eliquis etc for conditions such as Afib, DVT, Pulmonary embolus, coronary disease, stents etc please speak with your surgeon about specific details as to when you can resume these medications. You can resume NSAIDs on post op day 1 (eg: Motrin, Naproxen, etc). Follow up: Please call the office, , after surgery to arrange a 3 week follow up for wound check. Wound Care: You may remove your dressing on the first day after surgery. ?You may ?leave open to air. Please do not remove the steri strips underneath. they will fall off on their own in one week. IT IS NORMAL FOR THE WOUND TO OOZE OR BE BLOODY FOR A FEW DAYS AFTER SURGERY. ?IF THIS HAPPENS JUST PLACE NEW DRESSING OVER IT TO AVOID STAINING CLOTHES. You may shower on post op day # 1 We ask that you do not let the water soak the wound. If it does get wet, just towel dry lightly. Please do not scrub your incision or place any type of chemical/ointment on the wound. No tub baths, pools or jacuzzis for one month. If you have any leaking or redness from your wound, or fevers, please call the office. Care Plan Goals: Return to normal activity as tolerated Health Concerns: None Plan of Treatment: Follow-up in clinic in 2-3 weeks Assessment: POD: 1 Procedure: L2-5 lumbar fusion Rosendo is a pleasant 69-year-old male who underwent L2-[address] Estrada yesterday. He was seen sitting upright in bed watching TV on 3 this morning. In the immediate postoperative. Yesterday he was experiencing some increased bleeding near the incision site, which is evaluated by Dr. Estrada and myself. We changed his dressing around 1700 yesterday, and left the nursing staff with instructions for dressing changes. Today, he feels he is doing very well, his pain is very much so improved since preoperative. He was evaluated by Dr. Estrada this morning who ordered for his discharge home. He has support at home to help with his ADLs in the immediate postop period. He had his Kim removed at 06:00 this morning, and has voided twice independently since then. He is tolerating his current diet, and has no other concerns to report this morning. Afebrile, vital signs stable. The patient is well-appearing and conversant in no acute distress. His bilateral lower extremity strength is 5/5. Back dressings have some staining without signs of hematoma. Plan: Patient meets criteria to be medically discharged home. I will send in a prescription for oxycodone and gabapentin in his stool softener to the pharmacy here at [facility]. He should refrain from taking his aspirin for at least 5 days after surgery. This was discussed with the attending neurosurgeon Dr. Estrada. Rivera Estrada MD,PhD [facility]
--- NOTE | 2025-06-17 09:46 | HO.NEURO.PN ---
Neurosurgery Operative Note Date of Service: 06/17/25 Narrative: POD: 1 Procedure: L2-5 lumbar fusion Rosendo is a pleasant 69-year-old male who underwent L2-[address] Estrada yesterday. He was seen sitting upright in bed watching TV on [address] [place] this morning. In the immediate postoperative. Yesterday he was experiencing some increased bleeding near the incision site, which is evaluated by Dr. Estrada and myself. We changed his dressing around 1700 yesterday, and left the nursing staff with instructions for dressing changes. Today, he feels he is doing very well, his pain is very much so improved since preoperative. He was evaluated by Dr. Estrada this morning who ordered for his discharge home. He has support at home to help with his ADLs in the immediate postop period. He had his Kim removed at 06:00 this morning, and has voided twice independently since then. He is tolerating his current diet, and has no other concerns to report this morning. Afebrile, vital signs stable. The patient is well-appearing and conversant in no acute distress. His bilateral lower extremity strength is 5/5. Back dressings have some staining without signs of hematoma. Plan: Patient meets criteria to be medically discharged home. I will send in a prescription for oxycodone and gabapentin in his stool softener to the pharmacy here at [facility]. He should refrain from taking his aspirin for at least 5 days after surgery. This was discussed with the attending neurosurgeon Dr. Estrada. Rivera Estrada MD,PhD [facility]
--- NOTE | 2025-06-17 10:47 | W.MHC.F2F ---
Service Date Service Date: 06/17/25 Encounter Date of encounter: 06/17/25 Reasons for Services Signs and symptoms assessed: s/p L2-5 lumbar fusion Reason for senior living: neurological assessment, wound care and medication management Reason for physical therapy: home safety and mobility, therapeutic exercises, gait/transfer training and ADL training Homebound: Leaving the home is medically contraindicated at this time without the asist of a device and/or another person due th the listed conditions above and below. Reason homebound: unsteady gait / fall risk, pain with ambulation and weakness related to hospital stay Certification: Based on the above findings, I certify that this patient is confined to the home and needs intermittent senior living care, physical therapy and/or speech therapy, or continues to need occupational therapy. The patient is under my care, and I have initiated the establishment of the plan of care. The patient will be followed by a physician who will periodically review the plan of care. Time Spent With Patient Time: Total time managing care of this patient today ___16_ minutes.
--- NOTE | 2025-06-17 10:54 | MHC.CM.PN ---
PT REPORTS HE LIVES WITH HIS AND IS INDEPENDENT WITH CARE HE HAS NO HOME SERVICES AND USED NO DME CLINICAL RESOURCE COORDINATOR COPY OF HCP REQUESTED PCP: KIMBERLY CALHOUN DCP: HOME TODAY, WILL BRING WALKER TO TRANSPORT
--- NOTE | 2025-06-17 11:26 | HO.POSTANES ---
Post Anesthesia Evaluation Post Anesthesia Evaluation Date of Service: 06/17/25 Vital Signs: Vital Signs Temp Pulse Resp BP Pulse Ox O2 Del Method 06/17/25 07:25 99.2 F 75 14 136/65 93 Room Air 06/17/25 03:24 97.1 F 71 16 129/62 93 Room Air Anesthesia: General Endotracheal-GETA Mental Status: Awake Pain Control: Satisfactory Nausea/Vomiting: None Hydration: Adequate Anesthesia-Related Issues: No Anes. Related Issues
== END 2025-06-17 11:48 | disposition home health service (06) | DRG 458 ==
LOC: HO.SSSA 10:33 → HO.S3 12:59
PROVIDERS: Admitting Provider Neurological Surgery; PCP Family Medicine; Visit Provider Neurological Surgery
PROC: 0SG10A0 Fusion of 2 or more Lumbar Vertebral Joints with Interbody Fusion Device, Anterior Approach, Anterior Column, Open Approach (ICD-10-PCS; principal; 2025-06-16 07:30)
DX: M48.062 Spinal stenosis, lumbar region with neurogenic claudication (principal); M41.56 Other secondary scoliosis, lumbar region; I25.10 Atherosclerotic heart disease of native coronary artery without angina pectoris; Z95.1 Presence of aortocoronary bypass graft; E11.9 Type 2 diabetes mellitus without complications; Z79.82 Long term (current) use of aspirin; Z79.899 Other long term (current) drug therapy
CPT/HCPCS: 86850; 86900; 86901; 97161; C1713; C1889; J0131; J0665; J0666; J0690; J1100; J1171; J2003; J2250; J2405; J2704; J3010; L8699

== ENCOUNTER → 2025-06-16 06:08 | Outpatient (BNV) | payer OTHER, SELFPAY | PROVIDERS: Admitting Provider Neurological Surgery; PCP Family Medicine; Visit Provider Neurological Surgery | DX: M48.062 Spinal stenosis, lumbar region with neurogenic claudication (principal) | CPT/HCPCS: 20930; 22558; 22585; 22612; 22614; 22840; 22853; 63056; 99024; 99499; G0180 ==

== ENCOUNTER 2025-06-25 14:29 | Outpatient (AMB) | payer OTHER, SELFPAY ==
--- NOTE | 2025-06-25 15:20 | HO.SPINEOV ---
Intake Visit Reasons: Right leg and foot are swollen/pain Intake Note: Mr. Rashid is here today c/o Rt. leg and foot pain and swelling. 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 He had surgery last week, lumbar fusion. Pt came to office today, seen by Dr Estrada, reported swelling of the left leg acutely over last few days. He was off his Eliquis perioperative. Dr Estrada saw him, evaluated the left leg, has strong concerns for DVT, his whole left leg is edematous. He will be sent to the ED for evaluation. His oxycodone was refilled at his request. Don Estrada MD, PhD [facility] Medications: Refilled oxycodone Take 1-2 tablets by mouth every 4 hours; Partial Fill upon patient request. 42 tabs 0RF pain Coding Level of Care Code Global (96802) Diagnoses Neurogenic claudication due to lumbar spinal stenosis M48.062
== END 2025-06-25 16:13 | disposition home or self-care (01) ==
PROVIDERS: PCP Family Medicine; Visit Provider Neurological Surgery
DX: M48.062 Spinal stenosis, lumbar region with neurogenic claudication (principal)
CPT/HCPCS: 99024

== ENCOUNTER 2025-06-25 15:52 | Emergency (ER) | payer OTHER, SELFPAY ==
--- NOTE | ~2025-06-25 | XR_ITS ---
CLINICAL HISTORY: SOB 1 view chest x-ray Comparison: None provided Findings: No consolidation, pleural effusion or pneumothorax. Mild left lower lobe stranding. Cardiomediastinal silhouette is accentuated by portable technique and suboptimal inspiratory effort. Prior distal left claviculectomy. Multiple anchoring screws project over the left humeral head. Median sternotomy and post CABG changes. IMPRESSION: Hypoventilation with resultant mild left basilar atelectasis. This document has been electronically signed by: Kait Lockwood DO on 06/25/2025 20:42:12
--- NOTE | ~2025-06-25 | CT_ITS ---
CLINICAL HISTORY: LE swelling, bridgett ? obstructive uropathy CT ABDOMEN AND PELVIS WITHOUT CONTRAST Comparison: None provided Findings: Significant motion artifact limits evaluation. Please see the separate report for the CT chest. Mild bilateral hydronephrosis with no obstructing calculus. Probable small cyst in the right kidney. No acute abnormalities in the remaining unenhanced solid organs. No large calcified gallstone. Multiple extraluminal gas foci are identified in the left lower quadrant. Large air collection is identified in the fat containing left inguinal hernia. There are inflammatory changes in the mesentery of the left lower quadrant. No significant wall thickening in regional bowel loops. Multiple gas foci are seen adjacent to the distal descending colon with no evidence for diverticulitis. No free or loculated fluid collection. No small bowel obstruction or ileus. Decompressed stomach with no significant perigastric edema. Dense aortic and arterial calcifications. No AAA. Body wall edema. The appendix is identified. No acute appendicitis. The urinary bladder is distended up to 16.2 cm in craniocaudal dimension. Prostate gland measures 5.1 cm transversely. Multiple prostatic calcifications. L2-L5 posterior fusion with multilevel interbody metallic disc spacers. IMPRESSION: 1. Image degradation secondary to significant motion artifact. 2. Positive for free intraperitoneal air localized to the left lower quadrant and in the fat containing left inguinal hernia. Perforated viscus is the primary diagnostic consideration. However, no convincing evidence for acute diverticulitis or acute appendicitis. 3. Bilateral pseudo-obstructive uropathy most likely related to prominent urinary bladder distention. Mild prostatomegaly. No urolithiasis. This document has been electronically signed by: Kait Lockwood DO on 06/25/2025 20:42:24
--- NOTE | ~2025-06-25 | US_ITS ---
CLINICAL HISTORY: bridgett s surgery US Renal Comparison: None provided Findings: Right kidney normal size and echotexture, 11.2 cm length. Left kidney normal size and echotexture, 10.7 cm length. Limited evaluation of renal parenchyma bilaterally secondary to poor acoustic windows. No hydronephrosis of either kidney. Normal color Doppler IMPRESSION: 1. No acute abnormality of the kidneys. This document has been electronically signed by: Radha Vivas MD on 06/25/2025 19:32:10
--- NOTE | ~2025-06-25 | CT_ITS ---
CLINICAL HISTORY: R o pna hypoxia CT CHEST WITHOUT CONTRAST Comparison: CR - XR CHEST 1V - 06/25/25 19:57 EDT Findings: No significant pericardial effusion. Median sternotomy and post CABG changes. No thoracic aortic aneurysm. Mild secretions in the trachea. Visualized thyroid gland unremarkable. Multiple borderline enlarged mediastinal lymph nodes are nonspecific. Small hiatal hernia. No acute airspace disease or consolidation. Mild atelectasis and/or scarring in the left lower lobe. No pleural effusion or pneumothorax. Please see the separate report for the CT abdomen and pelvis. Large flowing endplate osteophytes throughout the thoracic spine can be seen with diffuse idiopathic skeletal hyperostosis. IMPRESSION: 1. No acute airspace disease or consolidation. 2. Mild atelectasis and/or scarring in the left lower lobe. This document has been electronically signed by: Kait Lockwood DO on 06/25/2025 20:45:22
--- NOTE | ~2025-06-25 | CT_ITS ---
CLINICAL HISTORY: ams CT head without contrast Comparison: None provided Findings: No intra-axial mass, midline shift, hydrocephalus, or acute hemorrhage. No significant atrophy-like change or white matter disease. Trace fluid within the right maxillary sinus. Remaining paranasal sinuses are clear. The orbits are unremarkable. There is no acute fracture. IMPRESSION: No acute abnormality of the brain. This document has been electronically signed by: Radha Vivas MD on 06/25/2025 20:35:57
--- NOTE | ~2025-06-25 | US_ITS ---
CLINICAL HISTORY: pain Venous duplex ultrasound bilateral lower extremity Comparison: None provided Findings: There is nearly occlusive thrombus within the right peroneal veins. The right common femoral, femoral, popliteal and posterior tibial veins are patent. The visualized right greater saphenous vein is patent. There is thrombus within the left common femoral, femoral, popliteal, profundus femoris and peroneal veins. There is thrombus within the visualized left greater saphenous vein. No popliteal cyst. IMPRESSION: 1. Extensive deep venous thrombosis of the left lower extremity. 2. Deep venous thrombosis of the right lower extremity with involvement of the peroneal veins. 3. There is thrombus within the visualized left greater saphenous vein. This document has been electronically signed by: Radha Vivas MD on 06/25/2025 18:12:05
--- NOTE | ~2025-06-25 | NM_ITS ---
CLINICAL HISTORY: sob, hypoxia, suspected LE DVT ? PE Nuclear medicine lung perfusion imaging Comparison: CR - XR CHEST 1V - 06/25/25 19:57 EDT Findings: Perfusion: 3.5mCi Tc 99m MAA Perfusion only imaging was performed. Multiple small segmental defects in the right lung. Asymmetrically diminished perfusion to the left lung. Review of the above-mentioned chest radiograph demonstrates no significant pulmonary parenchymal opacity or pleural effusion. Impression: 1. Multiple bilateral segmental defects with no corresponding chest radiographic abnormalities. Pulmonary emboli cannot be excluded. This document has been electronically signed by: Kait Lockwood DO on 06/25/2025 20:17:36
[2025-06-25 16:12] VITALS: BP 101/55; PULSE 88; RESP 18; TEMP 37.2; O2SAT 97; BMI 28.8
--- NOTE | 2025-06-25 16:14 | ED.GENADULT ---
HPI - General Adult General Chief complaint: Extremity Problem Stated complaint: L leg swollen, sent by surg? Time Seen by Provider: 06/25/25 17:09 Source: patient Mode of arrival: ambulatory Limitations: no limitations History of Present Illness ED Provider: ALEXEY Patel HPI narrative: This is a 69-year-old male history of neurogenic claudication due to lumbar spinal stenosis, scoliosis, BPH, hypertension, ED presenting with bilateral lower extremity swelling left leg more swollen than the right. He reports he is status post spinal surgery done here at [facility] with Dr. Estrada on 06/16/2025. He reports his left lower extremity feels slightly uncomfortable and is very swollen. He reports he is still in a lot of pain from his back surgery and he did not take his pain meds today. He also reports overall feeling unwell. He tells me he was off aspirin preoperatively however he usually takes Eliquis. Denies chest pain, shortness breath, abdominal pain, nausea, vomiting, headache, vision changes, dizziness, weakness, numbness and tingling. Related Data Home Medications ?Medication ?Instructions ?Recorded ?Confirmed aspirin 81 mg capsule 81 mg PO QAM 09/14/22 06/16/25 Held on 06/17/25. Instructions: Resume on 06/22/25. omeprazole 20 mg capsule,delayed 1 cap PO QAM 09/14/22 06/02/25 release tamsulosin 0.4 mg capsule 1 cap PO BEDTIME 09/14/22 06/02/25 amlodipine 5 mg tablet 5 mg PO BEDTIME 06/01/25 06/02/25 atorvastatin 80 mg tablet 40 mg PO BEDTIME 06/01/25 06/02/25 lisinopril 40 mg tablet 40 mg PO QAM 06/01/25 06/02/25 metoprolol succinate 50 mg 50 mg PO QAM 06/01/25 06/02/25 tablet,extended release 24 hr tadalafil 20 mg tablet 20 mg PO DAILY PRN Erectile 06/01/25 06/02/25 Dysfunction Previous Rx's ?Medication ?Instructions ?Recorded docusate sodium 100 mg capsule 100 mg PO BID PRN constipation #14 06/17/25 caps gabapentin 300 mg capsule 300 mg PO TID nerve pain #30 caps 06/17/25 oxycodone 5 mg tablet See Rx Instructions .Route 06/25/25 .COMPLEX PRN pain #42 tabs Allergies Allergy/AdvReac Type Severity Reaction Status Date / Time meperidine (From DEMEROL) Allergy Intermediate nausea/vomi Verified 06/25/25 16:17 ting/lighth eadedness hydrochlorothiazide Allergy Unknown Unknown Verified 06/25/25 16:17 per patient-allergy listed on [place] office visit Review of Systems Review of Systems: Yes all other systems are reviewed and are negative [facility] Past Medical History Attestation statement: The following information was validated with the patient. Source: old records reviewed and nursing notes reviewed Medical History Myocardial infarct White coat syndrome with hypertension Chest pain Skin cancer Coronary arteriosclerosis Diabetes Hiatal hernia Back pain Cervicalgia BPH (benign prostatic hyperplasia) Erectile dysfunction Pulmonary emphysema Elevated cholesterol HTN (hypertension) Barretts esophagus GERD (gastroesophageal reflux disease) Surgical History History of open heart surgery History of esophagogastroduodenoscopy (EGD) Hx of cervical spine surgery Hx of coronary artery bypass graft S/P foot surgery, left History of inguinal hernia repair H/O shoulder surgery H/O colonoscopy Social History Social History Household Members: Spouse Housing: House Are you a primary foster care worker to a significant other at home: No Do you presently have visiting nurse or other home services: No Comment: advised of trip hazard Patient Tobacco Use Status: Former Tobacco user Tobacco use type: Cigarette Years Smoked: 40 Smoked in Last 30 Days: No Use of substances other than those prescribed or required for medical reasons: No Advance Directives: No Advance Directives Information Provided: No service: Yes Physical Exam ED Exam Exam: Appearance: Alert.? Oriented X3.? No acute distress.? Head: Normocephalic, atraumatic, no step-offs or deformities Eyes: Pupils equal, round and reactive to light.? ENT: Pharynx normal.? Neck: Normal inspection.? Neck supple.? CVS: Normal heart rate and rhythm.? Pulses normal.? Respiratory: No respiratory distress.? Breath sounds normal.? Abdomen: Soft and nontender.? Skin: Skin warm and dry.? Normal skin color.? Normal skin turgor.? + b/l vertical incision sites to thoracic spine appear clean, dry and intact. No dressing overlying. No bleeding noted. Extremities: + significant non pitting edema to left lower extremity from the groin down to toes 3+ LLE , RLE 1+. + Homans sign on the left. 5/5 strength to bilateral upper and lower extremities Back: No midline tenderness, no C-spine tenderness, full range of motion, no CVA tenderness bilaterally Neuro: Oriented X 3.? No motor deficit.? No sensory deficit. CN 2-12 intact Vital Signs: Vital Signs - 24 hr 06/25/25 16:12 06/25/25 17:13 06/25/25 18:14 Temperature 99.0 F Pulse Rate 88 85 Respiratory Rate 18 16 Blood Pressure 101/55 L 109/52 L 115/62 Pulse Oximetry 97 92 Oxygen Delivery Method Room Air Room Air 06/25/25 18:19 06/25/25 18:49 06/25/25 21:18 Temperature 98.2 F Pulse Rate 88 86 87 Respiratory Rate 18 16 13 Blood Pressure 109/58 L 95/49 L 104/57 L Pulse Oximetry 93 95 96 Oxygen Delivery Method Room Air Room Air Nasal Cannula BMI result Body Mass Index 29.9 vss Course Course Course Narrative: RME, this is a rapid medical exam performed by Pop Zabala please refer to primary provider for complete H&P- 69-year-old male presents for evaluation of bilateral leg pain and swelling. His symptoms started yesterday but, worse today. He had recent spinal surgery on 06/16/[address] Estrada. Plan for labs urinalysis and ultrasound of the lower extremity to evaluate for DVT Reevaluation(s) Reevaluation #1: CBC with normocytic anemia. Chemistry with elevated BUN and creatinine BUN 115, creatinine 5.97. NT proBNP 3527 no previous to compare with. I do not suspect these abnormalities or from infection. Pre and postoperatively patient did receive IV Toradol. He was not discharged home on NSAIDs however. Patient does have an oxygen saturation of 89 90% on room air. Will give some Lasix at this time. Time: 17:47 Reevaluation #2: Since I can not obtain imaging with contrast will order a V/Q scan to rule out PE on this patient. Will order dry scan of the chest to rule out pneumonia. In it CT abdomen and pelvis dry to rule out any obstructive process that could be causing KRISTINA. Presumptively will start patient on a heparin drip as I suspect left lower extremity DVT. And will rule out PE Time: 17:56 Reevaluation #3: Preliminary report of bilateral lower extremity duplex appears positive for DVT bilaterally. Will wait for final read Time: 17:58 Additional Reevaluation(s): 1800-Spoke to Flex who recommends stopping ALL antihypertensives. 1810- patient's at the bedside pulled me aside and spoke to me in private he she tells me that patient seems to be slightly more confused than usual she tells me that over the past few days he has been feeling like he is in and out of reality. This happened once before when he was on gabapentin he was restarted on gabapentin 10 days ago upon discharge however they are tapering him off at this time. His speech sounds normal he has been ambulating per usual other than with pain. No focal neurological deficits on my exam. I do not suspect stroke. Last known well time a few days ago out of TNK window, recent surgery not a candidate. Will obtain a head CT for further evaluation of this. 1819-Also discussed this case w/ Dr. Farris. No procedural intervention at this time as he has a kidney injury. 1905 Patient's troponin elevated 53.2 likely type 2 injury no chest pain unlikely ACS. Likely from kidney injury 1919 Discussed this case w/ my attending --> high risk patient for TNK. ? Thormbectomy candidate if possible and PE + We have no ICU beds. [facility] closed to transfers. [place] transfer line tells us that no thrombectomy available there incase needed Will reach out to [facility]. 1956 Renal US unremarkable 2002 V/Q scan done and pending 2039 Multiple bilateral segmental defects with no corresponding chest radiographic abnormalities. I do suspect PE on this patient. Head CT no acute abnormality. CT chest, abdomen and pelvis pending. Image degradation secondary to significant motion artifact. Positive for free intraperitoneal air localized to the left lower quadrant and fat containing left inguinal hernia. Perforated viscus is the primary diagnostic consideration. No convincing evidence for acute diverticulitis or acute appendicitis. Bilateral pseudo obstructive uropathy most likely related to prominent urinary bladder distention, will place urinary Kim catheterization at this time. Really no abdominal tenderness on exam. Sign out to Dr. Navarro. Pending call back from [place] Medications Administered Generic Name Dose Route Start Last Admin Trade Name Freq PRN Reason Stop Dose Admin Heparin Sodium/Sodium Chloride 25,000 unit in 250 mls @ 0 mls/hr 06/25/25 18:30 06/25/25 18:54 Heparin Sodium,Porcine/1/2ns IVCONT 14 units/kg/hr .Q0M LISBETH 14.38 mls/hr Protocol Administration Per Protocol Discontinued Medications Generic Name Dose Route Start Last Admin Trade Name Freq PRN Reason Stop Dose Admin Fentanyl 50 mcg 06/25/25 20:36 06/25/25 20:43 Fentanyl Citrate/Pf 100 Mcg/2 Ml Vial IVPUSH 06/25/25 20:37 50 mcg ONCE ONE Administration Protocol Furosemide 40 mg 06/25/25 17:47 06/25/25 18:14 Furosemide 40 Mg/4 Ml Vial IVPUSH 06/25/25 17:48 40 mg ONCE ONE Administration Protocol Heparin Sodium (Porcine) 7,900 unit 06/25/25 17:54 06/25/25 18:23 Heparin Sodium,Porcine 5,000 Unit/Ml Vial 80 unit/kg (7900 unit) 06/25/25 17:55 Not Given IVPUSH ONCE ONE Heparin Sodium (Porcine) 8,200 unit 06/25/25 18:17 06/25/25 18:32 Heparin Sodium,Porcine 5,000 Unit/Ml Vial 80 unit/kg (8200 unit) 06/25/25 18:18 8,200 unit IVPUSH Administration ONCE ONE Sodium Chloride 1,000 mls @ 999 mls/hr 06/25/25 19:45 06/25/25 20:03 Ns IV 06/25/25 20:45 999 mls/hr .Q1H1M LISBETH Administration Oxycodone HCl 5 mg 06/25/25 17:38 06/25/25 17:55 Oxycodone Hcl Immed Release 5 Mg Tablet PO 06/25/25 17:39 5 mg ONCE ONE Administration Medical Decision Making Medical Decision Making [facility] Narrative: 69-year-old male presents with left lower extremity swelling and pain he is status post L3-4, L4-5 diskectomy, arthrodesis and implantation cage through an anterior lateral, retroperitoneal approach, L2-L3 oblique lateral lumbar interbody fusion with diskectomy, preparation of endplates and placement of titanium bullet cage packed with allograft, anterior to transverse process in modified prone position with intraoperative biplanar fluoroscopy, L2-L5 posterior instrumented fusion presenting to the emergency department with lower extremity swelling bilaterally left greater than right. Discrepancy in patient report and neurosurgery note patient states he was never on Eliquis however it is mentioned in the neuro surgery note. He tells me he was only on baby aspirin. When I 1st went in to assess patient I did notice he was 89-90% on room air. He stopped Eliquis due to preop requirement. Physical exam significant lower extremity edema 3+ to left lower extremity 1+ to right lower extremity nonpitting. Positive Homans on the left. Palpable pulses bilaterally. History and physical exam concerning for DVT of left lower extremity and possibly right however less likely. Unlikely arterial occlusion or acute threat to limb. I do not suspect cellulitis. Plan labs, imaging I took over patient's case at the change of shift. Patient's DVT study was positive for having a DVT. Has decreased O2 sat. He is currently not on Eliquis. Patient had an elevated creatinine of about 6. [place] patient not a good candidate for CT angiogram. Elected to do a ventilation perfusion study. It was positive for having a segmental PE. Likely contributing to the low O2 sat. Patient had a BNP likely secondary to PE. We elected to start patient on heparin as patient had a recent surgery. Went ahead and contacted [facility]. [facility] has no available bed. Went ahead and contacted [facility] they had no available bed. Went ahead and contacted [facility]. They had a bed at [facility]. There was a slight delay in getting in touch with the cartographic designer at [facility] due to their capacity issues. He was an extremely busy night and it took an extraordinary amount of time for them to get back to us over an hour and a half. Patient case discussed with Dr. Vigil accepted the transfer to [facility]. Risk and benefit of transferring discussed with family including the fact that we neck about 2 hours transferred the patient from [facility] to [facility]. Patient is in guarded condition a status update patient's blood pressure has been maintaining in the ED. Patient's O2 sat is maintaining in the ED. Patient is currently in no acute distress. I did try to contact my cartographic designer here at [facility] Dr. Tong felt this is beyond the capability of my hospital. [place] patient should be transfer. Had a long discussion with patient's family agree with plan understood the risks Differential Diagnosis Differential Diagnoses: The differential diagnosis associated with the presentation includes PE, pneumonia, congestive heart failure, DVT Admission/Observation Consideration of admission/observation: Escalation of care including admission/observation considered (possible ) Considered admission to the hospital elected to transfer patient Consult Healthcare Provider Management of the patient was discussed with: Rehabilitation Director (Neurospine- sent in for DVT r/o ) Press Set Up at [facility] in [place] Lab Data MDM Lab Attestation statement: I reviewed the patient's lab results. 06/25/25 18:03 06/25/25 16:23 Labs: Lab Results 06/25/25 06/25/25 06/25/25 Range/Units 16:23 18:03 18:05 WBC 10.8 11.1 H (4.8-10.8) X10*3/uL RBC 3.99 L 3.89 L (4.60-5.80) X10*6/uL Hgb 12.1 L 11.6 L (14.0-18.0) g/dl Hct 35.7 L D 35.6 L (42.0-52.0) % MCV 89.5 91.5 (80.0-98.0) fL MCH 30.3 29.8 (27.0-33.0) pg MCHC 33.9 32.6 (31.0-36.0) g/dl RDW 13.4 13.5 (11.0-16.0) % Plt Count 102 L D 99 L (160-400) X10*3/uL MPV 10.4 10.8 (9.4-12.4) fL Immature Gran % (Auto) 1.2 H (0.0-0.4) % Neut % (Auto) 75.9 H (45-73) % Lymph % (Auto) 10.1 L (20-40) % [place] % (Auto) 9.7 (2-11) % Eos % (Auto) 2.4 (0-4) % Baso % (Auto) 0.7 (0-2) % Lymph # (Auto) 1.1 L (1.2-4.9) X10*3/uL [place] # (Auto) 1.1 (0.1-1.2) X10*3/uL Eos # (Auto) 0.3 (0.0-0.4) X10*3/uL Baso # (Auto) 0.1 (0.0-0.2) X10*3/uL Abs Immat Gran (auto) 0.13 H (0.00-0.03) X10*3/uL Absolute Neuts (auto) 8.2 (2.0-8.3) x10*3/uL Absolute Nucleated RBC 0.000 0.000 (0.0-0.012) X10*3/uL Nucleated RBC % (auto) 0.0 0.0 (0.0-0.2) /100WBC PT 14.4 H 14.4 H (10.9-12.4) SEC INR 1.3 H 1.3 H (0.9-1.1) aPTT Heparin Protocol 29.2 L (53-77.9) SEC Sodium 143 (135-145) mmol/L Potassium 4.2 (3.3-5.1) mmol/L Chloride 109 H (96-108) mmol/L Carbon Dioxide 19 L (22-29) mmol/L Anion Gap 19 (12-20) BUN 115 H (9-16) mg/dL Creatinine 5.97 H* (0.5-1.4) mg/dL Estim Creat Clear Calc 14.4 Estimated GFR 9 Random Glucose 129 H (60-115) mg/dL Lactic Acid 1.3 (0.5-2.0) mmol/L Calcium 8.4 D (8.4-10.2) mg/dL Total Bilirubin 0.7 (0.0-1.0) mg/dL AST 39 H (5-37) U/L ALT 32 (0-40) U/L Alkaline Phosphatase 110 (39-117) U/L Troponin I High Sens 53.2 H (<3.5-35.0) ng/L NT-Pro-B Natriuret Pep 3527.0 H (<300) pg/mL Total Protein 6.5 (6.5-8.0) g/dL Albumin 3.5 (3.5-5.0) g/dL Lipase 15 (8-78) U/L Independent Interpretation I performed an independent interpretation of an: EKG (Normal sinus rhythm Inferior infarct (cited on or before 18-Jun-2017) Prolonged QT Abnormal ECG When compared with ECG of 18-Jun-2017 11:32, Vent. rate has increased by 34 bpm Nonspecific T wave abnormality no longer evident in Lateral leads QT has lengthened), Ultrasound (Findings: There is nearly occlusive thrombus within the right peroneal veins. The right common femoral, femoral, popliteal and posterior tibial veins are patent. The visualized right greater saphenous vein is patent. There is thrombus within the left common femoral, femoral, popliteal, profundus ), CT Scan and Vq/Perfusion Scan (ordered and pending team called in after hours ) Radiology Impression Discussion of test interpretation with radiology: I have reviewed the radiologist's reading. Independent Historian Clinical information obtained from an independent historian. History obtained from or confirmed by: Spouse External Record Review External record reviewed: Inpatient record, Office record, Outpatient record, Prior outpatient labs, Prior outpatient radiology, Primary care record and Outside ED record Chronic Conditions Patient?s care impacted by: Other (see hpi ) Critical Care Time Critical Care Time Critical Care Time: Yes Total Critical Care Time: 45 Attestation: I attest to this time spent taking care of the patient, obtaining history, physical, reviewing labs, imaging, treatment of patients condition +/- specialist/hospitalist consult +/- procedure Discharge Plan Discharge Clinical Impression: DVT, bilateral lower limbs, Hypoxic, Left leg swelling, Swelling of right lower extremity, KRISTINA (acute kidney injury), Encephalopathy, Pulmonary emboli Patient Disposition: Xfer Other Transfer Details: Patient is being transferred to [facility] Prescriptions: No Action tamsulosin 0.4 mg capsule 1 cap PO BEDTIME omeprazole 20 mg capsule,delayed release(DR/EC) 1 cap PO QAM aspirin 81 mg Capsule 81 mg PO QAM atorvastatin 80 mg Tablet 40 mg PO BEDTIME metoprolol succinate 50 mg Tablet Extended Release 24 Hr 50 mg PO QAM amlodipine 5 mg Tablet 5 mg PO BEDTIME lisinopril 40 mg Tablet 40 mg PO QAM tadalafil 20 mg Tablet 20 mg PO DAILY PRN (Reason: Erectile Dysfunction) Rx Instructions: administer approximately 30min before sexual activity; do not use more than 1 dose per 24hrs docusate sodium 100 mg capsule 100 mg PO BID PRN (Reason: constipation) Qty: 14 0RF gabapentin 300 mg capsule 300 mg PO TID Qty: 30 1RF oxycodone 5 mg tablet See Rx Instructions .ROUTE .COMPLEX PRN (Reason: pain) Qty: 42 0RF Rx Instructions: Take 1-2 tablets by mouth every 4 hours; Partial Fill upon patient request. Print Language: Luxembourgish
[2025-06-25 16:29] LABS: Hematocrit 35.7 % (42.0-52.0); Hemoglobin 12.1 g/dl (14.0-18.0); Imm Gran Abs Auto 0.13 X10*3/uL (0.00-0.03); Imm Gran Pct Auto 1.2 % (0.0-0.4); Lymphocytes Absolute Auto 1.1 X10*3/uL (1.2-4.9); MANUAL DIFF FLAG NO; Mean Corpuscular HGB Conc 33.9 g/dl (31.0-36.0); Mean Corpuscular Hemoglobin 30.3 pg (27.0-33.0); Mean Corpuscular Volume 89.5 fL (80.0-98.0); NRBC Abs Auto 0.000 X10*3/uL (0.0-0.012); NRBC Pct Auto 0.0 /100WBC (0.0-0.2); Platelet Count 102 X10*3/uL (160-400); Red Blood Count 3.99 X10*6/uL (4.60-5.80); White Blood Count 10.8 X10*3/uL (4.8-10.8)
[2025-06-25 16:38] LABS: INTERNATIONAL NORM RATIO 1.3 (0.9-1.1); Prothrombin Time 14.4 SEC (10.9-12.4)
[2025-06-25 16:48] LABS: Alanine Aminotransferase 32 U/L (0-40); Albumin Level 3.5 g/dL (3.5-5.0); Alkaline Phosphatase 110 U/L (39-117); Anion Gap 19 (12-20); Aspartate Amino Transferase 39 U/L (5-37); Blood Urea Nitrogen 115 mg/dL (9-16); Calcium 8.4 mg/dL (8.4-10.2); Carbon Dioxide 19 mmol/L (22-29); Chloride 109 mmol/L (96-108); Creatinine Clr Calc Pharmacy 14.4; Estimated Glomerular Filt Rate 9; Lipase 15 U/L (8-78); Potassium 4.2 mmol/L (3.3-5.1); Sodium 143 mmol/L (135-145); Total Protein 6.5 g/dL (6.5-8.0)
[2025-06-25 16:54] LABS: NT Pro B Type Natriuretic Pept 3527.0 pg/mL (<300)
[2025-06-25 17:13] VITALS: BP 109/52; PULSE 85; RESP 16; O2SAT 92
--- NOTE | 2025-06-25 17:15 | PC.NURSE ---
lle SWELLING FROM FOOT to thigh. Pt had recent lower back surgery. missed oxycodone at 2p. unable to palpate pedal pulse but has brisk cap refill. States he's been ALARCON lately. unlabored at rest in bed. no thinners. recently stopped [id number]. just one dose this am since surgery on 06/16/25
--- NOTE | 2025-06-25 17:44 | ECG_ITS ---
Test Reason : DVT'S Blood Pressure : */* mmHG Vent. Rate : 83 BPM Atrial Rate : 83 BPM P-R Int : 136 ms QRS Dur : 90 ms QT Int : 426 ms P-R-T Axes : 11 5 -5 degrees QTcB Int : 500 ms Normal sinus rhythm Inferior infarct (cited on or before 18-Jun-2017) Prolonged QT Abnormal ECG When compared with ECG of 18-Jun-2017 11:32, Vent. rate has increased by 34 bpm Nonspecific T wave abnormality no longer evident in Lateral leads QT has lengthened Referred By: Pascual Patel Electronically Signed By: NEHA BERNARDO
[2025-06-25] MEDS: oxyCODONE HCl Immed Release 5 MG TABLET PO (17:55)
[2025-06-25 18:14] VITALS: BP 115/62
[2025-06-25] MEDS: Furosemide 40 MG/4 ML VIAL IVPUSH (18:14)
[2025-06-25 18:16] VITALS: BMI 29.9
[2025-06-25 18:19] VITALS: BP 109/58; PULSE 88; RESP 18; TEMP 36.8; O2SAT 93
[2025-06-25 18:33] LABS: Hematocrit 35.6 % (42.0-52.0); Hemoglobin 11.6 g/dl (14.0-18.0); Mean Corpuscular HGB Conc 32.6 g/dl (31.0-36.0); Mean Corpuscular Hemoglobin 29.8 pg (27.0-33.0); Mean Corpuscular Volume 91.5 fL (80.0-98.0); NRBC Abs Auto 0.000 X10*3/uL (0.0-0.012); NRBC Pct Auto 0.0 /100WBC (0.0-0.2); Red Blood Count 3.89 X10*6/uL (4.60-5.80); White Blood Count 11.1 X10*3/uL (4.8-10.8)
[2025-06-25 18:49] VITALS: BP 95/49; PULSE 86; RESP 16; O2SAT 95
[2025-06-25] MEDS: Heparin Sodium,Porcine/1/2NS 25,000 UNIT/250 ML IV.SOLN 14.38 UNIT IVCONT (18:54)
[2025-06-25 18:59] LABS: Platelet Count 99 X10*3/uL (160-400)
[2025-06-25 19:01] LABS: Troponin-I High Sensitivity 53.2 ng/L (<3.5-35.0)
[2025-06-25 19:06] LABS: INTERNATIONAL NORM RATIO 1.3 (0.9-1.1); Prothrombin Time 14.4 SEC (10.9-12.4)
[2025-06-25 19:07] LABS: PTT Heparin Drip 29.2 SEC (53-77.9)
--- NOTE | 2025-06-25 19:59 | P.EN_ITS ---
Event Note Date of Service: 06/25/25 Event Note: I was notified about Mr. Rashid. My understanding is that Mr. Rashid is a 60 Y M w/ hypertension, hyperlipidemia, and recent lumbar fusion, presenting to emergency department on 06/25 w/ L lower extremity pain, found to be in acute hypoxic respiratory failure and hypotension. ED work-up demonstrated bilateral lower extremity DVTs, as well as elevated BNP. The ED team expressed concerns for massive PE, which I agree. Moreover, the ED team expressed concerns for th rombolytic therapy in setting of recent spinal surgery. Given such, I agree with transfer for higher level of care, specifically for PERT and possible thrombectomy. Time Spent With Patient Time: Total time managing care of this patient today ____ minutes.
[2025-06-25 21:18] VITALS: BP 104/57; PULSE 87; RESP 13; O2SAT 96
[2025-06-25 22:37] LABS: Appearance Urine Clear; Glucose Urine UA 100 mg/dL (Negative); PH 5.5 (5.0-9.0); Specific Gravity - Urine 1.015 (1.005-1.025); UMIC TRIGGER UACC YES
--- NOTE | 2025-06-25 23:46 | PC.NURSE ---
Report called to LIANG Courtney at [facility]. Report given to ambulance personnel and pt transferred onto their stretcher and escorted out of department by ambulance personnel for transport to [facility]/
--- NOTE | 2025-06-26 07:14 | HO.NEURO.PN ---
Neurosurgery Operative Note Date of Service: 06/26/25 Narrative: Rosendo is a pleasant 69 year old male who underwent L2-3 Transkambin Lumbar fusion, L3-4 oblique lumbar interbody fusion on 06/16/25. He presented to clinic yesterday with concerns for lower extremity swelling. He subsequently was evaluated in the emergency department for LE DVT. He was found to be in acute hypoxic respiratory failure and hypotension. US imaging showed bilateral lower extremity DVTs, alonside elevated BNP (3527) and troponin (53.2). Recent labs show evidence of KRISTINA, with Cr elevated to 5.97. His white count is also notably elevated at 11.1. He was subsequently transferred to ICU level of care for PERT and possible thrombectomy with a high suspicion of pulmonary embolism. Blood cultures have been taken in ED but are still pending. CT scan of chest showed mild atelectasis but no evidence of PNA. VQ perfusion scan was unable to exclude pulmonary emobli. The patient was subsequently transfered to [facility] last night by ED / ICU. After reviewing the patients imaging it sounds like there was high enough suspicion for large pulmonary embolism to have the patient transferred. I did speak with the emergency department nurses and the nurses in the ICU this morning to confirm he was transferred. We will continue to follow the patient and provide recommendations regarding care as needed. We will plan to see him in clinic as soon as he is cleared for DC from the hospital. This was discussed with the attending neurosurgeon Dr. Estrada. Rivera Estrada MD,PhD [facility]
== END 2025-06-26 02:20 | disposition other institution (70) ==
PROVIDERS: Emergency Medicine Emergency Medical Services; Physician Assistant; Emergency Provider Emergency Medicine Emergency Medical Services; PCP Family Medicine; Referring Provider Physician Assistant
DX: I82.403 Acute embolism and thrombosis of unspecified deep veins of lower extremity, bilateral (principal); R09.02 Hypoxemia; G93.40 Encephalopathy, unspecified; I26.99 Other pulmonary embolism without acute cor pulmonale; R94.31 Abnormal electrocardiogram [ECG] [EKG]; R60.0 Localized edema; M79.605 Pain in left leg; M79.604 Pain in right leg; R06.02 Shortness of breath; R10.2 Pelvic and perineal pain; R10.32 Left lower quadrant pain; R51.9 Headache, unspecified; M54.2 Cervicalgia; R11.0 Nausea; Z79.899 Other long term (current) drug therapy; Z87.891 Personal history of nicotine dependence
CPT/HCPCS: 36415; 51702; 70450; 71045; 71250; 74176; 76775; 78580; 80053; 81001; 82570; 83605; 83690; 83880; 84484; 85025; 85027; 85610; 85730; 87040; 93005; 93970; 96361; 96365; 96366; 96375; 99212; 99285; 99291; A9540; J1644; J1938; J3010

== ENCOUNTER → 2025-06-25 16:14 | Outpatient (BNV) | payer OTHER, SELFPAY | PROVIDERS: Emergency Provider Emergency Medicine Emergency Medical Services; PCP Family Medicine; Visit Provider Radiology Diagnostic Radiology | DX: K40.90 Unilateral inguinal hernia, without obstruction or gangrene, not specified as recurrent (principal); R09.02 Hypoxemia; R41.82 Altered mental status, unspecified; R06.02 Shortness of breath; I82.402 Acute embolism and thrombosis of unspecified deep veins of left lower extremity; I82.401 Acute embolism and thrombosis of unspecified deep veins of right lower extremity; I82.451 Acute embolism and thrombosis of right peroneal vein; I82.812 Embolism and thrombosis of superficial veins of left lower extremity; N17.9 Acute kidney failure, unspecified | CPT/HCPCS: 70450; 71045; 71250; 74176; 76775; 78580; 93970 ==

== ENCOUNTER → 2025-06-25 17:25 | Outpatient (BNV) | payer OTHER, SELFPAY | PROVIDERS: Emergency Provider Emergency Medicine Emergency Medical Services; PCP Family Medicine; Visit Provider Physician Assistant | DX: Z48.89 Encounter for other specified surgical aftercare (principal) | CPT/HCPCS: 99024 ==

== ENCOUNTER → 2025-06-25 17:44 | Outpatient (BNV) | payer OTHER, SELFPAY | PROVIDERS: Emergency Provider Emergency Medicine Emergency Medical Services; PCP Family Medicine; Visit Provider Internal Medicine | DX: I25.2 Old myocardial infarction (principal) | CPT/HCPCS: 93010 ==

== ENCOUNTER 2025-07-07 14:05 | Outpatient (AMB) | payer OTHER, SELFPAY ==
--- NOTE | 2025-07-07 14:49 | A.SPINEOV_ITS ---
Intake Visit Reasons: 1st post op Intake Note: Mr. Rashid is here today for his 1st post op. Dot Etcher Required: No Allergies meperidine (From DEMEROL) Allergy (Intermediate, Verified 07/07/25 14:49) nausea/vomiting/lightheadedness hydrochlorothiazide Allergy (Unknown, Verified 07/07/25 14:49) Unknown per patient-allergy [facility] Assessment & Plan Assessment & Plan (1) S/P lumbar spinal fusion: Code(s): Z98.1 - Arthrodesis status Category: Surgical Plan Rosendo is a pleasant 69 year old male who underwent L2-3 Transkambin Lumbar fusion, L3-4 oblique lumbar interbody fusion on 06/16/25. He had a complicated postoperative course and was evaluated in the emergency department for LE DVT. He was eventually transferred to ICU level of care for PERT and possible thrombectomy with a high suspicion of pulmonary embolism, then transferred to OSH for likely thrombectomy. See previous progress notes for specifics regarding this. Today, Rosendo reports that he is comparatively doing very well. He was transferred to [facility] and did not end up needing thrombectomy. He did end up having a worsening KRISTINA, which they attributed to urinary retention. After they were able to place a Kim catheter and he voided for a couple of days it sounds like his kidney function stabilized. They also did several tests to evaluate his DVT / PE and decided he was stable to DC home with anticoagulants / thrombolytics. Since returning home he has been ambulating both independently and with a walker. He feels his pain is fairly well controlled on current pain regimen. He did requested his pain medication be refilled today. No new neurological deficits. The patient ambulates well with the assistance of his walker. He is able to stand independently without any assistive devices. He rises from a seated position without much difficulty. His posterior and lateral incision sites are closed, well healing, with no signs of drainage or erythema. There is some slight edema overlying the 2 superficial incisions on the right side of his back, but this is likely just related to some swelling/inflammation. I would like to follow up with Rosendo again in 6 weeks with a set of x-rays. I will send in a refill for his pain medication to the [place]. Rivera Estrada MD,PhD [facility] Medications: Changed From oxycodone Take 1-2 tablets by mouth every 4 hours; Partial Fill upon patient request. 42 tabs 0RF pain To oxycodone Take 1-2 tablets by mouth every 4-6 hours; Partial Fill upon patient request. 30 tabs 0RF pain Refilled oxycodone Take 1-2 tablets by mouth every 4-6 hours; Partial Fill upon patient request. 30 tabs 0RF pain Coding Level of Care Code Global (63324) Diagnoses S/P lumbar spinal fusion Z98.1
--- OUTSIDE RECORDS SUMMARY | 2025-07-07 15:18 | XMS_ITS ---
Author Name [facility] Organization Unknown Results Test Name/Text Value Interpretation Date Range Source BUN/Creat SerPl 18.0 Ratio 06/28/2025 10 - 25 HH CCT GFR/BSA.pred SerPlBld [id number] 70.0 06/28/2025 59 - HHCCT Creat SerPl-mCnc 1.14 mg/dL 06/28/2025 0.7 - 1.3 H HCCT BUN SerPl-mCnc 21.0 mg/dL 06/28/2025 9 - [address] Calcium SerPl-mCnc 8.7 mg/dL 06/28/2025 8.7 - 10.5 HHCCT Sodium SerPl-sCnc 149.0 mmol/L Above high normal 06/28/2025 136 - 145 HHCCT Potassium SerPl-sCnc 4.0 mmol/L 06/28/2025 3.4 - 4.5 HHCCT Chloride SerPl-sCnc 115.0 mmol/L Above high normal 98 - 107 HHCCT Anion Gap Bld-sCnc 13.0 06/28/2025 5 - 15 HHCCT Glucose SerPl-mCnc 147.0 mg/dL Above high normal 06/28/2025 74 - 106 HHCCT CO2 SerPl-sCnc 21.0 mmol/L 06/28/2025 20 - 31 HH CCT LMWH PPP [employer]er-aCnc 0.31 IU/mL 06/28/2025 HHCCT Anticoagulant IV HEPARIN, UNFRACTIONATED 06/28/2025 HHCCT WBC num Bld Auto 12.8 Thou/uL Above high normal 06/28/2025 4 - 11 HHCCT Platelet num Bld Auto 219.0 Thou/uL 06/28/2025 150 - 450 HHCCT Hgb Bld-mCnc 10.5 g/dL Below low normal 06/28/2025 13 - 17.7 HHCCT PMV Bld Auto 10.3 fL 06/28/2025 7.5 - 12.5 HHCCT Hct VFr Bld Auto 32.7 % Below low normal 06/28/2025 39 - 54 HHCCT MCV RBC Auto 92.0 fL 06/28/2025 80 - 100 HHCCT MCH RBC Qn Auto 29.6 pg 06/28/2025 27 - [address] RDW RBC Auto-Rto 13.2 % 06/28/2025 11.5 - 14.5 HHCCT RBC num Bld Auto 3.55 Mil/uL Below low normal 06/28/2025 4.5 - 6.2 HHCCT MCHC RBC Auto-mCnc 32.1 g/dL 06/28/2025 30 - 36 HHCCT Delta NO PREVIOUS RESULT 06/27/2025 HHCCT Troponin I SerPl DL<=0.01 ng/mL-mCnc 17.0 ng/L 06/27/2025 - 54 HHCCT BUN SerPl-mCnc 65.0 mg/dL Above high normal 06/27/2025 9 - 2 3 HHCCT BUN/Creat SerPl 19.0 Ratio 06/27/2025 10 - 25 HH CCT Calcium SerPl-mCnc 8.4 mg/dL Below low normal 06/27/2025 8.7 - 10.5 HHCCT CO2 SerPl-sCnc 16.0 mmol/L Below low normal 06/27/2025 20 - 31 HHCCT Creat SerPl-mCnc 3.46 mg/dL Above high normal 06/27/2025 0.7 - 1.3 HHCCT Chloride SerPl-sCnc 113.0 mmol/L Above high normal 98 - 107 HHCCT Sodium SerPl-sCnc 146.0 mmol/L Above high normal 06/27/2025 136 - 145 HHCCT GFR/BSA.pred SerPlBld [id number]-[id number] 18.0 Below low normal 06/27/2025 59 - HHCCT Potassium SerPl-sCnc 4.4 mmol/L 06/27/2025 3.4 - 4.5 HHCCT Glucose SerPl-mCnc 96.0 mg/dL 06/27/2025 74 - 106 HHCCT Anion Gap Bld-sCnc 18.0 Above high normal 06/27/2025 5 - 15 HHCCT LMWH PPP [employer]er-aCnc 0.37 IU/mL 06/27/2025 HHCCT Anticoagulant IV HEPARIN, UNFRACTIONATED 06/27/2025 HHCCT LMWH PPP [employer] Installer-aCnc 0.32 IU/mL 06/26/2025 HHCCT Anticoagulant IV HEPARIN, UNFRACTIONATED 06/26/2025 HHCCT POC Glucose 127.0 mg/dL Above high normal 06/26/2025 65 - 99 HHCCT BNP SerPl-mCnc 50.0 pg/mL 06/26/2025 0 - [address] LMWH PPP [employer]er-aCnc 0.34 IU/mL 06/26/2025 HHCCT Anticoagulant IV HEPARIN, UNFRACTIONATED 06/26/2025 HHCCT POC Glucose 111.0 mg/dL Above high normal 06/26/2025 65 - 99 HHCCT Delta NO PREVIOUS RESULT 06/26/2025 [facility] Trop[facility] I SerPl DL<=0.01 ng/mL-mCnc 29.0 ng/L 06/26/2025 - 54 HHCCT POC Glucose 104.0 mg/dL Above high normal 06/26/2025 65 - 99 HHCCT UUN Ur-mCnc 731.0 mg/dL 06/26/2025 CCT Sodium Ur-sCnc 40.0 mmol/L 06/26/2025 HH CCT Creat Ur-mCnc 118.0 mg/dL 06/26/[address] Squamous num/area UrnS HPF 0.0 per hpf 06/26/2025 HHCCT Hyaline Casts num/area UrnS LPF 2.0 per lpf 06/26/2025 0 - 4 HHCCT RBC num/area UrnS HPF >25.0 per hpf Above high normal 06/26/2025 0 - 4 HHCCT WBC num/area UrnS HPF >25.0 per hpf Above high normal 06/26/2025 0 - 4 HHCCT Nitrite Ur Ql Strip Unable to perform chemistries due to color of urine Abnormal 06/26/2025 - HHCCT Clarity Ur Cloudy 06/26/2025 HHCCT Color Ur Garland 06/26/2025 HHCCT Hgb Ur Ql Strip Large Abnormal 06/26/2025 - [facility] CT Leukocyte esterase Ur Ql Strip Small Abnormal 06/26/2025 - CCT Sp Gr Ur Strip 1.015 06/26/2025 1.005 - 1.03 HHCCT Ketones Ur Strip-nc Negative 06/26/2025 - [facility] Bilirub Ur Strip-[facility] Unable to perform chemistries due to color of urine Abnormal 06/26/2025 - [facility] Prot Ur Strip-[facility] Unable to perform chemistries due to color of urine Abnormal 06/26/2025 - [facility] pH Ur Strip 5.0 06/26/2025 5 - 8 HHCCT Glucose Ur Strip-nc Negative 06/26/2025 [facility] Hgb A1c MFr Bld 7.3 % Above high normal 06/26/2025 - 5.7 HHCCT Est. average glucose Bld gHb Est-mCnc 163.0 mg/dL 06/26/2025 HHCCT CK SerPl-cCnc 76.0 U/L 06/26/2025 46 - 171 HHCCT B-OH-Butyr SerPl-sCnc 0.73 mmol/L Above high normal 06/26/2025 - 0.28 HHCCT Phosphate SerPl-mCnc 6.2 mg/dL Above high normal 06/26/2025 2.4 - 5.1 HHCCT Albumin/Glob SerPl 1.4 Ratio Below low normal 06/26/2025 1.5 - 2.5 HHCCT Anion Gap Bld-sCnc 16.0 Above high normal 06/26/2025 5 - 15 HHCCT Calcium SerPl-mCnc 8.5 mg/dL Below low normal 06/26/2025 8.7 - 10.5 HHCCT Chloride SerPl-sCnc 110.0 mmol/L Above high normal 98 - 107 HHCCT ALP SerPl-cCnc 99.0 U/L 06/26/2025 45 - 128 [facility]CC T Glucose SerPl-mCnc 110.0 mg/dL Above high normal 06/26/2025 74 - 106 HHCCT Prot SerPl-mCnc 6.0 g/dL 06/26/2025 5.7 - 8.[address] CO2 SerPl-sCnc 20.0 mmol/L 06/26/2025 20 - 31 HH CCT Creat SerPl-mCnc 4.59 mg/dL Above high normal 06/26/2025 0.7 - 1.3 HHCCT Albumin SerPl-mCnc 3.5 g/dL 06/26/2025 3.4 - 4.8 HHCCT Bilirub SerPl-mCnc 0.6 mg/dL 06/26/2025 0.3 - 1.2 HHCCT BUN/Creat SerPl 20.0 Ratio 06/26/2025 10 - 25 HH CCT Sodium SerPl-sCnc 145.0 mmol/L 06/26/2025 136 - 14 5 HHCCT AST SerPl-cCnc 30.0 U/L 06/26/2025 - 34 [facility] T BUN SerPl-mCnc 94.0 mg/dL Above high normal 06/26/2025 9 - 2 3 HHCCT Potassium SerPl-sCnc 4.1 mmol/L 06/26/2025 3.4 - 4.5 HHCCT GFR/BSA.pred SerPlBld [id number] 13.0 Below low normal 06/26/2025 59 - HHCCT ALT SerPl-cCnc 29.0 U/L 06/26/2025 10 - 49 [facility] T Globulin Ser Calc-mCnc 2.5 g/dL 06/26/2025 1.5 - 3.9 HHCCT Magnesium SerPl-mCnc 2.2 mg/dL 06/26/2025 1.6 - 2.6 HHCCT Trigl SerPl-mCnc 126.0 mg/dL 06/26/2025 - 150 HHCCT HDLc SerPl-mCnc 18.0 mg/dL Below low normal 06/26/2025 60 - HHCCT LDLc SerPl Calc-mCnc 32.0 mg/dL 06/26/2025 - 130 HHCCT Cholest SerPl-mCnc 75.0 mg/dL 06/26/2025 - 200 HHCCT HDLc SerPl 4.2 Ratio 06/26/2025 0 - 5 HHCCT TSH SerPl DL<=0.005 mIU/L-aCnc 0.43 mIU/L Below low normal 06/26/2025 0.48 - 4.17 HHCCT Lactate SerPl-sCnc 0.9 mmol/L 06/26/2025 0.5 - 1.9 HHCCT Prothrombin time 15.2 seconds Above high normal 06/26/2025 1 0 - 13.5 HHCCT INR PPP 1.3 06/26/2025 HHCCT Anticoagulant OTHER AGENT OR UNKNOWN 06/26/2025 HHCCT aPTT PPP 37.0 seconds 06/26/2025 26 - 37 HHCCT Anticoagulant IV HEPARIN, UNFRACTIONATED 06/26/2025 HHCCT Hgb Bld-mCnc 11.2 g/dL Below low normal 06/26/2025 13 - 17.7 HHCCT Platelet num Bld Auto 114.0 Thou/uL Below low normal 06/26/2025 150 - 450 HHCCT PMV Bld Auto 10.7 fL 06/26/2025 7.5 - 12.5 HHCCT MCHC RBC Auto-mCnc 32.3 g/dL 06/26/2025 30 - 36 HHCCT MCV RBC Auto 92.0 fL 06/26/2025 80 - 100 HHCCT Hct VFr Bld Auto 34.7 % Below low normal 06/26/2025 39 - 54 HHCCT RBC num Bld Auto 3.76 Mil/uL Below low normal 06/26/2025 4.5 - 6.2 HHCCT WBC num Bld Auto 9.8 Thou/uL 06/26/2025 4 - 11 HHCCT MCH RBC Qn Auto 29.8 pg 06/26/2025 27 - [address] RDW RBC Auto-Rto 13.5 % 06/26/2025 11.5 - 14.5 HHCCT Encounters Encounter Type Encounter Reason Primary Diagnosis Location Date Inpatient Other pulmonary embolism without acute cor pulmonale Other pulmonary embolism without acute cor pulmonale [facility] 06/26/2025 [facility] [employer] [facility] 06/25/2025 [facility] 06/25/2025 [facility] 06/25/2025 [facility]ian 06/25/2025 [facility] [place] [facility] 06/25/2025 Care Team Organization Name Specialty Phone Email Start Date End Da te [facility] 06/26/2025 [facility] 06/26/2025 [facility] 06/26/2025
--- OUTSIDE RECORDS SUMMARY | 2025-07-07 15:18 | XMS_ITS | Clinical Summary ---
Author Organization [facility] Address [address] [place] [id number] Care Team Providers Care Social Insurance Adviser Name Role Phone Shane Vigil MD Primary Care Provider + Allergies Active Allergy Reactions Criticality Noted Date Comments Meperidine GI Intolerance/Nausea/Vomiting Low 06/26 Hydrochlorothiazide Unknown/Patient and Family Unable to Define Medium 06/26/2025 Medications aspirin 81 MG chewable tablet Chew 1 tablet (81 mg total) daily. Active OMEprazole (PriLOSEC OTC) 20 MG tablet Take 1 tablet (20 mg total) by mouth every morning before breakfast. Active tamsulosin (FLOMAX) 0.4 MG capsule Take 1 capsule (0.4 mg total) by mouth daily. Active atorvastatin (LIPITOR) 80 MG tablet Take 1 tablet (80 mg total) by mouth daily. Active lisinopril (PRINIVIL,ZeSTRI L) 40 MG tablet Take 1 tablet (40 mg total) by mouth daily. Active oxyCODONE (OXY-IR) 5 MG capsule Take 1 capsule (5 mg total) by mouth 4 times daily (every 6 hours) as needed for severe pain. Max Daily Amount: 20 mg Active apixaban (ELIQUIS) 5 MG tabletIndication s:Pulmonary embolus, left (HCC),Acute deep vein thrombosis (DVT) of proximal vein of lower extremity, unspecified laterality (HCC) Take 10 mg twice daily for 5 days then continue 5 mg twice daily 90 tablet 06/29/20 25 Active metoPROLOL SUCCINATE (TOPROL-XL) 50 MG 24 hr tabletIndication s:Primary hypertension Take 0.5 tablets (25 mg total) by mouth daily. 06/29/20 Active amLODIPine (NORVASC) 5 MG tabletIndication s:Primary hypertension Take 2 tablets (10 mg total) by mouth daily. 06/29/20 Active amLODIPine (NORVASC) 5 MG tablet Take 1 tablet (5 mg total) by mouth daily. Discontinued metoPROLOL SUCCINATE (TOPROL-XL) 50 MG 24 hr tablet Take 1 tablet (50 mg total) by mouth daily. Discontinued tadalafil (CIALIS) 20 MG tablet Take 1 tablet (20 mg total) by mouth daily as needed for erectile dysfunction . Discontinued(St op Taking at Discharge) gabapentin (NEURONTIN) 300 MG capsule Take 1 capsule (300 mg total) by mouth 3 (three) times a day. Discontinued(St op Taking at Discharge) Active Problems Problem Noted Date Diagnosed Date Primary hypertension 06/28/2025 Assessment & Plan (06/28/2025 5:40 PM EDT): Amlodipine and lisinopril resumed As heart rate has improved will resume metoprolol Benign prostatic hyperplasia with urinary retent ion 06/27/2025 Assessment & Plan (06/28/2025 9:11 AM EDT): Flomax DC Kim and for voiding trial Assessment & Plan (06/27/2025 10:37 AM EDT): Continue Flomax Indwelling Kim in situ Consider voiding trial later in the day History of CAD (coronary artery disease) Assessment & Plan (06/28/2025 9:11 AM EDT): Continue aspirin atorvastatin Assessment & Plan (06/27/2025 10:37 AM EDT): Continue aspirin, atorvastatin Pulmonary embolus, left 06/26/2025 Assessment & Plan (06/28/2025 9:11 AM EDT): On heparin drip with transition to DOAC today Assessment & Plan (06/27/2025 10:37 AM EDT): Continue heparin drip for now will likely transition to DOAC prior to discharge Acute deep vein thrombosis (DVT) of lower extrem ity 06/26/2025 Assessment & Plan (06/28/2025 9:11 AM EDT): On heparin drip with transition to DOAC today Assessment & Plan (06/27/2025 10:37 AM EDT): Continue heparin drip for now will likely transition to DOAC prior to discharge KRISTINA (acute kidney injury) 06/26/2025 Assessment & Plan (06/28/2025 9:11 AM EDT): Mental status improving Creatinine 1.14 Assessment & Plan (06/27/2025 10:37 AM EDT): Likely due to ATN versus obstructive uropathy in the setting of anesthesia and narcotics continue IV fluids Follow-up BMP Nephrology input appreciated, follow-up renal ultrasound Reorientation and redirection S/P diskectomy 06/26/2025 Assessment & Plan (06/28/2025 9:11 AM EDT): Pain management Assessment & Plan (06/27/2025 8:10 AM EDT): Pain management PT OT Acute metabolic encephalopathy 06/26/2025 Assessment & Plan (06/28/2025 9:11 AM EDT): Mental status improving Creatinine 1.14 Assessment & Plan (06/27/2025 10:37 AM EDT): Likely due to ATN versus obstructive uropathy in the setting of anesthesia and narcotics continue IV fluids Follow-up BMP Nephrology input appreciated, follow-up renal ultrasound Reorientation and redirection Constipation 06/26/2025 Assessment & Plan (06/28/2025 9:11 AM EDT): Bowel regimen Assessment & Plan (06/27/2025 10:37 AM EDT): Bowel regimen-MiraLAX and senna docusate GERD (gastroesophageal reflux disease) Assessment & Plan (06/28/2025 9:11 AM EDT): Pantoprazole Assessment & Plan (06/27/2025 8:10 AM EDT): Continue pantoprazole Encounters Date Type Department Care Team Description 06/26/2025 2:21 AM EDT - 06/29/2025 1:53 PM EDT Hospital Encounter [facility] [address] [phone] Shane Vigil MD Samuel, Jemi, MD Uzoamaka, Chinyere, MD Pulmonary embolus, left (HCC) (Primary Dx); Acute deep vein thrombosis (DVT) of proximal vein of lower extremity, unspecified laterality (HCC); Primary hypertension Discharge Disposition: Home or Self Care 06/26/2025 Travel 06/25/2025 11:25 PM EDT Ancillary Procedure [facility] [address] [place] [phone] Provider, File Room 06/25/2025 11:20 PM EDT Ancillary Procedure [facility] [address] [place] [phone] Provider, File Room 06/25/2025 11:15 PM EDT Ancillary Procedure [facility] [address] [place] [phone] Provider, File Room 06/25/2025 11:15 PM EDT Ancillary Procedure [facility] [address] [place] [phone] Provider, File Room 06/25/2025 11:15 PM EDT Ancillary Procedure [facility] [address] [place] [phone] Provider, File Room 06/25/2025 Orders Only [facility] [address] [place] [phone] Provider, File Room from Last 3 Months Social History Tobacco Use Types Packs/Day Years Used Date Smoking Tobacco: Former Cigarettes Tobacco Cessation:Counseling Given: Not Answered [facility] Utilities Answer Date Recorded In the past 12 months has th e electric, gas, oil, or water company threatened to shut off services in your home? No 06/28/2025 AUDIT-C Answer Date Recorded Q1: How often do you have a drink containing alcohol? Never 06/26/2025 Q2: How many drinks containi ng alcohol do you have on a typical day when you are drinking? Patient does not drink Q3: How often do you have si x or more drinks on one occasion? Never 06/26/2025 Overall Financial Resource Strain (CARDIA) Answe r Date Recorded How hard is it for you to pa y for the very basics like food, housing, medical care, and heating? Not very hard 06/28/2025 Hunger Vital Sign Answer Date Recorded Within the past 12 months, y ou worried that your food would run out before you got the money to buy more. Never true 06/28/20 25 Within the past 12 months, t he food you bought just didn't last and you didn't have money to get more. Never true 06/28/2025 PRAPARE - Transportation Answer Date Re corded In the past 12 months, has l ack of transportation kept you from medical appointments or from getting medications? No 06/08 In the past 12 months, has l ack of transportation kept you from meetings, work, or from getting things needed for daily living? No 06/28/2025 Housing Stability Vital Sign Answer Mark e Recorded In the last 12 months, was t here a time when you were not able to pay the mortgage or rent on time? No 06/28/2025 In the past 12 months, how m any times have you moved where you were living? 0 06/28/2025 At any time in the past 12 m [facility], were you homeless or living in a long-term (including now)? No 06/28/2025 Sex and Gender Information Value Date Recorded Sex Assigned at Male 06/26/2025 1:18 AM EDT Legal Sex Male 6:37 PM EST Gender Identity Male 06/26/2025 1:18 AM EDT Sexual Orientation Heterosexual (straight) 06/26 1:18 AM EDT Last Filed Vital Signs Vital Sign Reading Time Taken Comments Blood Pressure 162/66 06/29/2025 11:19 AM EDT Pulse 78 06/29/2025 11:19 AM EDT Temperature 36.9 C (98.5 F) 06/29/2025 11:19 AM EDT Respiratory Rate 20 06/29/2025 11:19 AM EDT Oxygen Saturation 97% 06/29/2025 11:19 AM EDT Inhaled Oxygen Concentration - - Weight 96.4 kg (212 lb 8.4 oz) 06/29/2025 6:00 A M EDT Height 185.4 cm (6' 1 ) 06/26/2025 2:35 AM EDT Body Mass Index 28.04 06/26/2025 2:35 AM EDT Plan of Treatment Health Maintenance Due Date Last Done Comments Advance Care Planning 1955 Hepatitis C Virus Screening 1955 DTaP/Tdap/Td Vaccines (1 - Tdap) 1974 Colonoscopy 2000 Pneumococcal Vaccines 50+ (1 of 1 - PCV) 2005 Zoster (Shingles) Vaccine (1 of 2) 2005 RSV Vaccine 60 years and old er and Patients (1 - Risk 60-74 years 1-dose series) 2015 Abdominal Aortic Aneurysm (A AA) Screening 2020 Influenza Vaccine 05/07/2025 COVID-19 Vaccine (1 - 2023-2 5 season) 2025 Hepatitis B Vaccines Aged Out No long er eligible based on patient's age to complete this topic Procedures Procedure Name Priority Date/Time Associated Diagnosis Comments US RENAL Routine 06/28/2025 9:21 AM EDT BASIC METABOLIC PANEL Routine 06/28/2025 5:42 AM EDT HEPARIN ASSAY (ANTI-XA) Routine 06/28/20 5:42 AM EDT COMPLETE BLOOD COUNT, WITHOUT DIFFERENTIAL Routine 06/28/2025 5:42 AM EDT TROPONIN I, HIGH SENSITIVITY Routine 06/27/2025 1:30 PM EDT BASIC METABOLIC PANEL Routine 06/27/2025 9:58 AM EDT ECG 12-LEAD Routine 06/27/2025 8:19 AM EDT HEPARIN ASSAY (ANTI-XA) Routine 06/27/20 4:55 AM EDT XR CHEST 1 VIEW-PORTABLE STAT 06/26/2025 11:39 PM EDT HEPARIN ASSAY (ANTI-XA) Routine 06/26/20 3:55 PM EDT POCT GLUCOSE, FINGERSTICK (POCGLU) (NO CHARGE) Routine 06/26/2025 3:49 PM EDT ECHOCARDIOGRAM (TTE) COMPREHENSIVE (CONTRAST PRN) Routine 06/26/2025 3:01 PM EDT US VENOUS DUPLEX LEG-BILATERAL (DVT) STAT 06/26/2025 1:41 PM EDT ECG 12-LEAD Routine 06/26/2025 11:38 AM EDT B-TYPE NATRIURETIC PEPTIDE Routine 06/26/2025 11:16 AM EDT HEPARIN ASSAY (ANTI-XA) Routine 06/26/20 8:58 AM EDT BLOOD CULTURE (HOSP LAB) Routine 06/26/2025 8:58 AM EDT URINE CULTURE Routine 06/26/2025 8:26 AM EDT POCT GLUCOSE, FINGERSTICK (POCGLU) (NO CHARGE) Routine 06/26/2025 8:11 AM EDT TROPONIN I, HIGH SENSITIVITY Routine 06/26/2025 5:37 AM EDT US RENAL STAT 06/26/2025 4:11 AM EDT POCT GLUCOSE, FINGERSTICK (POCGLU) (NO CHARGE) Routine 06/26/2025 3:55 AM EDT URINALYSIS WITH REFLEX TO MICROSCOPIC Routine 06/26/2025 3:30 AM EDT SODIUM, URINE, RANDOM Routine 06/26/2025 3:30 AM EDT CREATININE, URINE, RANDOM Routine 06/26/2025 3:30 AM EDT UREA NITROGEN, RANDOM URINE Routine 06/26/2025 3:30 AM EDT CREATINE KINASE (CK) Routine 06/26/2025 3:21 AM EDT B-HYDROXYBUTYRATE Routine 06/26/2025 3:2 1 AM EDT TSH, HIGHLY SENSITIVE Routine 06/26/2025 3:21 AM EDT PROTIME-INR Routine 06/26/2025 3:21 AM EDT PHOSPHORUS Routine 06/26/2025 3:21 AM EDT PARTIAL THROMBOPLASTIN TIME (PTT) Routine 06/26/2025 3:21 AM EDT MAGNESIUM Routine 06/26/2025 3:21 AM EDT LIPID PANEL Routine 06/26/2025 3:21 AM EDT LACTIC ACID, PLASMA Routine 06/26/2025 3:21 AM EDT HEMOGLOBIN A1C WITH ESTIMATED AVERAGE GLUCOSE Routine 06/26/2025 3:21 AM EDT COMPREHENSIVE METABOLIC PANEL Routine 06/26/2025 3:21 AM EDT COMPLETE BLOOD COUNT, WITHOUT DIFFERENTIAL Routine 06/26/2025 3:21 AM EDT ECG 12-LEAD Routine 06/26/2025 3:15 AM EDT KAYCE ARCHIVE FOR REFERENCE ONLY NM Routine 06/25/2025 11:[address] CHEST ARCHIVE FOR REFERENCE ONLY Routine 06/25/2025 11:[address] HEAD ARCHIVE FOR REFERENCE ONLY Routine 06/25/2025 11:[address] ABDOMEN ARCHIVE FOR REFERENCE ONLY Routine 06/25/2025 11:12 PM EDT CR CHEST ARCHIVE FOR REFERENCE ONLY Routine 06/25/2025 11:11 PM EDT from Last 3 Months Results * US Renal (06/28/2025 9:21 AM EDT) Only the most recent of2 resultswithin the time period is included. Anatomical Region Laterality Modality Abdomen Ultrasound 06/28/2025 10:2 6 AM EDT Impressions 06/28/2025 4:20 PM EDT Right renal simple cyst. Interval resolution of the right renal pelvis fullness. Dictated by: Familia Zuluaga If this exam was interpreted by a resident, I personally reviewed the image(s) and resident's interpretation and agree with the findings. Narrative 06/28/2025 4:20 PM EDT CLINICAL INFORMATION: bilateral, f/u Right renal pelvis fullness. TECHNIQUE: Real-time ultrasound of the retroperitoneum, including kidneys, bladder, and aorta was performed. COMPARISON: Ultrasound renal dated 06/26/2025, CT abdomen and pelvis dated 06/25/2025.. FINDINGS: Right Kidney: Measures 11.5 cm. A 1.3 x 1.5 x 11.4 cm cyst in the upper pole of the right kidney. Previously seen mild pelvic fullness is not seen on the present scan. No right hydronephrosis or calculus is visualized. Left Kidney: Measures 12.7 cm. No left hydronephrosis or calculus is visualized. Vessels: Not imaged. Bladder: Decompressed around a Kim catheter and incompletely evaluated. Procedure Note Armando Short MD - 06/28/2025 CLINICAL INFORMATION: bilateral, f/u Right renal pelvis fullness. TECHNIQUE: Real-time ultrasound of the retroperitoneum, including kidneys,bladder, and aorta was performed. COMPARISON: Ultrasound renal dated 06/26/2025, CT abdomen and pelvis dated06/25/2025.. FINDINGS: Right Kidney: Measures 11.5 cm. A 1.3 x 1.5 x 11.4 cm cyst in the upperpole of the right kidney. Previously seen mild pelvic fullness is not seenon the present scan. No right hydronephrosis or calculus is visualized. Left Kidney: Measures 12.7 cm. No left hydronephrosis or calculus isvisualized. Vessels: Not imaged. Bladder: Decompressed around a Kim catheter and incompletelyevaluated. IMPRESSION: Right renal simple cyst. Interval resolution of the right renal pelvis fullness. Dictated by: Familia Zuluaga If this exam was interpreted by a resident, I personally reviewed theimage(s) and resident's interpretation and agree with the findings. us Nancy Pereira MD [facility] US ORDERABLES Final Result * Heparin Assay (Anti Xa) (06/28/2025 5:42 AM EDT) Only the most recent of4 resultswithin the time period is included. Anti Xa 0.31 IU/mL 06/28/2025 6:16 AM EDT [facility] Comment: (NOTE) Heparin Thromboembolic/Standard/Full Dose Protocol: Therapeutic Range: Age 18+: 0.30 - 0.70 IU/mL Age 0 - 17: 0.35 - 0.70 IU/mL Heparin Cardiac/Low Dose Protocol: Therapeutic Range: 0.30 - 0.50 IU/mL Low Molecular Weight Heparin: Therapeutic Range: Age 18+: 0.50 - 1.09 IU/mL for twice daily dosing (or adjusted to daily for poor renal function) Age 18+: 1.00 - 2.00 IU/mL for once daily dosing Age 0-17: 0.50 - 1.00 IU/mL Anticoagulant IV HEPARIN, UNFRACTIONATED 06/27/2025 9:30 PM EDT [facility] Blood Blood specimen / Unknown 06/28/2025 5:42 AM EDT 06/28/2025 6:01 AM EDT us Filipe Walker MD LAB BLOOD ORDERABLES Final Resul t [facility] [address] [place] [address], [place] * (ABNORMAL) Complete Blood Count, WITHOUT, Differential (06/28/2025 5:42 AM EDT) Only the most recent of2 resultswithin the time period is included. White Blood Cell Count 12.8(H) 4.0 - 11.0 Thou/uL 06/28/2025 6:08 AM EDT [facility] Platelet Count 219 150 - 450 Thou/uL 06/28/2025 6:08 AM EDT [facility] Hemoglobin 10.5(L) 13.0 - 17.7 g/dL 06/28/2025 6:08 AM EDT [facility] Hematocrit 32.7(L) 39.0 - 54.0 % 06/28/2025 6:08 AM EDT [facility] Red Blood Cell Count 3.55(L) 4.50 - 6.20 Mil/uL 06/28/2025 6:08 AM EDT [facility] MCV 92 80 - 100 fL 06/28/2025 6:08 AM EDT [facility] MCH 29.6 27.0 - 31.0 pg 06/28/2025 6:08 AM EDT [facility] MCHC 32.1 30.0 - 36.0 g/dL 06/28/2025 6:08 AM EDT [facility] RDW 13.2 11.5 - 14.5 % 06/28/2025 6:08 AM EDT [facility] MPV 10.3 7.5 - 12.5 fL 06/28/2025 6:08 AM EDT [facility] Blood Blood specimen / Unknown 06/28/2025 5:42 AM EDT 06/28/2025 6:01 AM EDT us Nancy Pereira MD LAB BLOOD ORDERABLES Final Resul t [facility] [address] [place] [address], [place] * (ABNORMAL) Basic Metabolic Panel (06/28/2025 5:42 AM EDT) Only the most recent of2 resultswithin the time period is included. Glucose 147(H) 74 - 106 mg/dL 06/28/2025 6:40 AM EDT [facility] Comment:Fasting: <100 mg/dL, Non-Fasting: <200 mg/dL (ADA 2004) Blood Urea Nitrogen (BUN) 21 9 - 23 mg/dL 06/28/2025 6:41 AM EDT [facility] Creatinine 1.14 0.70 - 1.30 mg/dL 06/28/2025 6:41 AM EDT [facility] eGFR 70 >59 06/28/2025 6:41 AM EDT [facility] Comment:CKD-EPI (2020) in mL /min/1.73 sq meters. Sodium 149(H) 136 - 145 mmol/L 06/28/2025 6:40 AM EDT [facility] Potassium 4.0 3.4 - 4.5 mmol/L 06/28/2025 6:40 AM EDT [facility] Chloride 115(H) 98 - 107 mmol/L 06/28/2025 6:40 AM EDT [facility] CO2 21 20 - 31 mmol/L 06/28/2025 6:40 AM EDT [facility] Anion Gap 13 5 - 15 06/28/2025 6:40 AM EDT [facility] Calcium 8.7 8.7 - 10.5 mg/dL 06/28/2025 6:40 AM EDT [facility] BUN/Creatinine Ratio 18 10.0 - 25.0 Ratio 06/28/2025 6:41 AM EDT [facility] Blood Blood specimen / Unknown 06/28/2025 5:42 AM EDT 06/28/2025 6:01 AM EDT Anila Toribio MD LAB BLOOD ORDERABLES Final Result Performing Organization Address City/[facility] [place] [address], * Troponin I, High Sensitivity (06/27/2025 1:30 PM EDT) Only the most recent of2 resultswithin the time period is included. Troponin I, High Sensitivity 17 <54 ng/L 06/27/2025 2:12 PM EDT [facility] Delta (HS Troponin I) NO PREVIOUS RESULT 06/27/2025 2:12 PM EDT [facility] Blood Blood specimen / Unknown 06/27/2025 1:30 PM EDT 06/27/2025 1:44 PM EDT Nancy Pereira MD LAB BLOOD ORDERABLES Final Resul t Performing Organization Address [facility] [place] [address], [place] * ECG 12 lead (7 AM) (06/27/2025 8:19 AM EDT) Only the most recent of3 resultswithin the time period is included. Ventricular rate 71 BPM EKG [facility] Atrial rate 71 BPM EKG [facility] P-R interval 156 ms EKG [facility] QRS duration 94 ms EKG [facility] Q-T interval 428 ms EKG [facility] QTC calculation (Bazett) 466 ms EKG [facility] P axis 58 degrees EKG [facility] R axis 38 degrees EKG [facility] T axis 1 degrees EKG [facility] 06/27/2025 8:19 AM EDT Narrative EKG [facility] - 06/27/2025 8:21 AM EDT Normal sinus rhythm T wave abnormality, consider inferior ischemia Abnormal ECG When compared with ECG of 26-Jun-2025 11:38, T wave inversion no longer evident in Anterior leads QT has shortened Confirmed by MD Mazariegos Charles ([id number]) on 06/27/2025 8:21:05 AM Procedure Note Domingo Mazariegos MD - 06/27/2025 Normal sinus rhythm T wave abnormality, consider inferior ischemia Abnormal ECG When compared with ECG of 26-Jun-2025 11:38, T wave inversion no longer evident in Anterior leads QT has shortened Confirmed by MD Mazariegos Charles ([id number]) on 06/27/2025 8:21:05 AM us Shane Vigil MD ECG ORDERABLES Final Re sult EKG [facility] * XR Chest 1 view-Portable (06/26/2025 11:39 PM EDT) Anatomical Region Laterality Modality Chest Digital Radiogra phy 06/27/2025 12:0 8 AM EDT Impressions 06/27/2025 7:03 AM EDT No focal lung consolidation or pleural effusion. No evidence of pulmonary edema. Narrative 06/27/2025 7:03 AM EDT CLINICAL INDICATION: PNA vs EDMA COMPARISON: Chest x-ray 06/25/2025 TECHNIQUE: AP view of the chest. FINDINGS: Heart/Mediastinum: The cardiac silhouette is unchanged. The mediastinal contours are relatively stable. Status post median sternotomy with stable metal wires. Surgical clips overlying the cardiac silhouette. Lungs: No focal lung consolidation or pleural effusion. No evidence of pulmonary edema. Procedure Note iKrt Rai MD - 06/27/2025 CLINICAL INDICATION: PNA vs EDMA COMPARISON: Chest x-ray 06/25/2025 TECHNIQUE: AP view of the chest. FINDINGS: Heart/Mediastinum: The cardiac silhouette is unchanged. The mediastinalcontours are relatively stable. Status post median sternotomy with stablemetal wires. Surgical clips overlying the cardiac silhouette. Lungs: No focal lung consolidation or pleural effusion. No evidence ofpulmonary edema. IMPRESSION: No focal lung consolidation or pleural effusion. No evidence of pulmonaryedema. Nancy Pereira MD [facility]AG[facility] ORDERABLE S Final Result * (ABNORMAL) POCT Glucose, Fingerstick (06/26/2025 3:49 PM EDT) Only the most recent of3 resultswithin the time period is included. POC Glucose 127(H) 65 - 99 mg/dL 06/26/2025 3:56 PM EDT Comment:Notified RN Blood specimen / Unknown 06/26/2025 3:49 PM EDT 06/26/2025 3:56 PM EDT Nancy Pereira MD POINT OF CARE TEST ORDERABLES Fi nal Result HOSPITAL LAB See Below * ECHOCARDIOGRAM COMPREHENSIVE WITH CONTRAST (06/26/2025 3:01 PM EDT) Heart Rate 75 bpm BP Systolic 136 mmHg BP Diastolic 63 mmHg Height 73.00 inches Weight 218.00 lbs LV Mass Index (F:43-95, M:49-115) 114.9 g/m2 LA Volume Index (16-34) 22.8 mL/m2 LV Diastolic Volume Index (F:29-61, M:35-75) 22.0 mL/m2 LV Systolic Volume Index (F:8-24, M:11-31) 5.8 mL/m2 E/E' ratio 8.97 E/A ratio 0.81 Ascending aorta Index 1.8 cm/m2 Sinuses of Valsalva Index 1.7 cm/m2 LV mass 256.6 g [place] BP EF (55-75) 73 % E/E' Average 9.4 E/E' Septal 9.9 E/E' Lateral 9.0 LV RWT 0.45 BSA 2.23 m2 Est. RA pres 8 mmHg IVS Mean (F:0.6-0.9, M:0.6-1.0) 1.2 cm IVS (F:0.6-0.9, M:0.6-1.0) 1.2 cm LVIDD Mean (F:3.8-5.2, M:4.2-5.8) 5.3 cm LVIDD (F:3.8-5.2, M:4.2-5.8) 5.3 cm LVIDS (F:2.2-3.5, M:2.5-4.0) 3.3 cm LVIDS (F:2.2-3.5, M:2.5-4.0) 3.3 cm PW Mean (F:0.6-0.9, M:0.6-1.0) 1.2 cm PW (F:0.6-0.9, M:0.6-1.0) 1.2 cm LV Diastolic Volume Mean 48.9 mL LV Diastolic Volume 49 mL LV Systolic Volume Mean 13.1 mL LV Systolic Volume 13 mL RV Free wall pk S' Mean 7.6 cm/s RV Free wall pk S' 7.6 cm/s LA volume Mean 50.9 mL LA volume 50.9 mL MV Peak A-Wave Mean 100.9 cm/s MV Peak A-Wave 100.9 cm/s E wave decelartion time mean 245 ms E wave decelartion time 245 ms MV Peak E-Wave Mean 82.0 cm/s MV Peak E-Wave 82.0 cm/s MV E' Lateral Velocity Mean 9.14 cm/s MV E' Lateral Velocity 9.14 cm/s MV E' Septal Velocity Mean 8.28 cm/s MV E' Septal Velocity 8.28 cm/s Tapse Mean 1.0 cm Tapse 1.0 cm TR Peak Harpal Mean 3.2 m/s TR Peak Harpal 3.0 m/s TR Peak Harpal 3.3 m/s TR Peak Harpal 3.3 m/s TR Peak Harpal 3.3 m/s Ascending aorta mean 4.0 cm Ascending aorta 4.0 cm Sinuses of Valsalva Mean 3.7 cm Sinuses of Valsalva 3.7 cm Anatomical Region Laterality Modality Heart Ultrasound Narrative 06/27/2025 8:29 AM EDT The left ventricle is normal in size. Left ventricular systolic function is hyperdynamic. The quantitative EF by 2D [place] biplane is 73%. No wall motion abnormalities are present. Diastolic function is normal. Right ventricle was not well visualized. The right ventricle is normal in size. Right ventricular systolic function is moderately reduced. Abnormal tricuspid annular plane systolic excursion (TAPSE) <1.6 cm. Abnormal systolic excursion velocity by TDI (<9.5cm/s). There is mild tricuspid regurgitation. The estimated right ventricular systolic pressure is moderately elevated. There is no previous study for comparison in our system. Technical Details Definity contrast was used during the study. Overall the study quality was fair. The study was difficult due to patient's body habitus. Left Ventricle The left ventricle is normal in size. Left ventricular systolic function is hyperdynamic. The quantitative EF by 2D [place] biplane is 73%. No wall motion abnormalities are present. Diastolic function is normal. Right Ventricle Right ventricle was not well visualized. The right ventricle is normal in size. Right ventricular systolic function is moderately reduced. Abnormal tricuspid annular plane systolic excursion (TAPSE) <1.6 cm. Abnormal systolic excursion velocity by TDI (<9.5cm/s). Left Atrium Left atrial size is normal. Right Atrium Right atrial size is normal. Based on IVC diameter and collapse, right atrial pressure is estimated to be moderately elevated (8 mmHg). Mitral Valve The mitral valve is structurally normal. There is no mitral regurgitation. Tricuspid Valve The tricuspid valve is structurally normal. There is mild tricuspid regurgitation. The estimated right ventricular systolic pressure is moderately elevated. Aortic Valve The aortic valve is tricuspid. There is mild aortic valve sclerosis without evidence of stenosis.There is trace aortic regurgitation. Pulmonic Valve The pulmonic valve is structurally normal. There is trace pulmonic regurgitation. Ascending Aorta The aortic root dimension is normal. Pericardium There is no pericardial effusion. Prior Study There is no previous study for comparison in our system. us Nancy Pereira MD CV ECHO ORDERABLES Final Result * US Venous duplex leg-Bilateral (DVT) (06/26/2025 1:41 PM EDT) Anatomical Region Laterality Modality Vascular Bilateral Ultrasound 06/26/2025 1:47 PM EDT Impressions 06/26/2025 2:04 PM EDT Findings most compatible with extensive left-sided diffuse regions of positive deep venous thrombosis from the left common femoral vein down to portions of the calf veins. Right calf vein thromboses are noted as well. Critical positive findings were discussed with WENDY MILLER on 06/26/2025 1:48 PM. Narrative 06/26/2025 2:04 PM EDT CLINICAL INFORMATION: History of a pulmonary embolism. Clinical concern for deep venous thrombus. COMPARISON: None. TECHNIQUE: Real-time scanning of the bilateral lower extremity deep venous systems was performed assessing alberto scale appearance, color and duplex Doppler flow and compressibility. Imaging is obtained from the extrahepatic veins down to the popliteal trifurcations of bilateral lower extremities. Imaging includes sampling of calf veins as well. FINDINGS: Left Lower Extremity: The common femoral vein, deep femoral vein, popliteal vein, and calf veins have regions which are not compressible, distended, and contain echogenic thrombus. Findings suggest extensive left-sided deep venous thrombus. This left-sided venous thrombus extends into portions of the left calf veins. No color flow is demonstrated within these segments on Doppler evaluation, consistent with acute DVT. The superficial femoral vein and external iliac vein are patent, compressible, and show normal color and Doppler flow. Right Lower Extremity: The midsegment of the deep venous plexus of the calf is incompressible, distended, and contains echogenic thrombus with absent flow on Doppler, consistent with right-sided chest pain thrombus. The right external iliac vein, common femoral vein, superficial femoral vein, deep femoral vein, and popliteal vein are compressible and show normal Doppler and color flow. Other Findings: No Gamino's cyst is identified. Procedure Note Chacho Ridley MD - 06/26/2025 CLINICAL INFORMATION: History of a pulmonary embolism. Clinical concernfor deep venous thrombus. COMPARISON: None. TECHNIQUE: Real-time scanning of the bilateral lower extremity deep venoussystems was performed assessing alberto scale appearance, color and duplexDoppler flow and compressibility. Imaging is obtained from theextrahepatic veins down to the popliteal trifurcations of bilateral lower extremities. Imaging includes sampling ofcalf veins as well. FINDINGS: Left Lower Extremity: The common femoral vein, deep femoral vein, popliteal vein, and calf veinshave regions which are not compressible, distended, and contain echogenicthrombus. Findings suggest extensive left-sided deep venous thrombus. Thisleft-sided venous thrombus extends into portions of the left calf veins. No color flow is demonstrated within these segments on Doppler evaluation,consistent with acute DVT. The superficial femoral vein and external iliac vein are patent,compressible, and show normal color and Doppler flow. Right Lower Extremity: The midsegment of the deep venous plexus of the calf is incompressible,distended, and contains echogenic thrombus with absent flow on Doppler,consistent with right- sided chest pain thrombus. The right external iliac vein, common femoral vein, superficial femoralvein, deep femoral vein, and popliteal vein are compressible and shownormal Doppler and color flow. Other Findings: No Gamino's cyst is identified. IMPRESSION: Findings most compatible with extensive left-sided diffuse regions ofpositive deep venous thrombosis from the left common femoral vein down toportions of the calf veins. Right calf vein thromboses are noted as well. Critical positive findings were discussed with WENDY MILLER on06/26/2025 1:48 PM. Wendy Miller PA-C IMG US ORDERABLES Final Res ult * B-type Natriuretic Peptide (06/26/2025 11:16 AM EDT) Pathologist [facility] B-Type Natriuretic Peptide 50 0 - 99 pg/mL 06/26/2025 11:47 AM EDT [facility] Blood Blood specimen / Unknown 06/26/2025 11:16 AM EDT 06/26/2025 11:18 AM EDT Wendy Miller PA-C LAB BLOOD ORDERABLES Final Result [facility] [address] [place] [address], * Blood Culture (06/26/2025 8:58 AM EDT) [facility] Culture Sterile after 5 days 07/01/2025 7:31 AM EDT [facility] Blood Blood specimen / Unknown 06/26/2025 8:58 AM EDT 06/26/2025 9:48 AM EDT Comment:Blood Shane Vigil MD LAB BLOOD ORDERABLES Fin al Result Performing Organization Address City/[facility]/ZIP Co de Phone Number [facility] [address] [place] [address], [place] * Urine Culture (06/26/2025 8:26 AM EDT) Culture Sterile or less than 1000 col/mL 06/27/2025 10:27 AM EDT [facility] Urine (Indwelling Urinary Catheter) 06/26/2025 8:26 AM EDT 06/26/2025 8:47 AM EDT Comment:Urine Shane Vigil MD MICROBIOLOGY - GENERAL O RDERABLES Final Result Performing Organization Address [facility]/ZIP Co de Phone Number [facility] [address] [place] [address], [place] * (ABNORMAL) Urinalysis with Reflex to Microscopic (06/26/2025 3:30 AM EDT) Color [place] 06/26/2025 4:02 AM EDT [facility] Clarity Cloudy 06/26/2025 4:02 AM EDT [facility] Specific [place] 1.015 1.005 - 1.030 06/26/2025 4:02 AM EDT [facility] pH 5.0 5.0 - 8.0 06/26/2025 4:02 AM EDT [facility] Leukocyte Esterase Small(A) Negative 06/26/2025 4:02 AM EDT [facility] Nitrite Unable to perform chemistries due to color of urine(A) Negative 06/26/2025 4:02 AM EDT [facility] Protein Unable to perform chemistries due to color of urine(A) Negative mg/dL 06/26/2025 4:02 AM EDT [facility] Glucose Negative Negative mg/dL 06/26/2025 4:02 AM EDT [facility] Ketones Negative Negative mg/dL 06/26/2025 4:02 AM EDT [facility] Blood Large(A) Negative 06/26/2025 4:02 AM EDT [facility] Bilirubin Unable to perform chemistries due to color of urine(A) Negative 06/26/2025 4:02 AM EDT [facility] RBC >25(H) 0 - 4 per hpf 06/26/2025 4:02 AM EDT [facility] WBC >25(H) 0 - 4 per hpf 06/26/2025 4:02 AM EDT [facility] Epithelial Cells 0 per hpf 06/26/2025 4:02 AM EDT [facility] Casts 2 0 - 4 per lpf 06/26/2025 4:02 AM EDT [facility] Comment:Casts are hyaline un less otherwise noted. Urine Voided urine specimen / Unknown 06/26/2025 3:30 AM EDT 06/26/2025 3:38 AM EDT us Lena Perez DINING ROOM TABLES SET UP ATTENDANT URINE ORDERABLES Final Res ult Performing Organization Address City/[facility]/ZIP Co de Phone Number [facility] [address] [place] [address], [place] * Urea Nitrogen, Random Urine (06/26/2025 3:30 AM EDT) Urea Nitrogen, Random Urine 731 mg/dL 06/26/2025 4:17 AM EDT [facility] Comment:Reference range not established for random specimen. Urine Urine specimen / Unknown 06/26/2025 3:30 AM EDT 06/26/2025 3:38 AM EDT us Lenamax Perez DINING ROOM TABLES SET UP ATTENDANT URINE ORDERABLES Final Res ult [facility] [address] [place] [address], [place] * SODIUM, URINE, RANDOM (06/26/2025 3:30 AM EDT) Sodium, Urine Random 40 mmol/L 06/26/2025 4:17 AM EDT [facility] Comment:Reference range not established for random specimen. Urine Urine specimen / Unknown 06/26/2025 3:30 AM EDT 06/26/2025 3:38 AM EDT us Lenamax Perez DINING ROOM TABLES SET UP ATTENDANT URINE ORDERABLES Final Res ult Performing Organization Address [facility]/[place] [address], [place] * CREATININE, URINE, RANDOM (06/26/2025 3:30 AM EDT) Creatinine, Urine, Random 118 mg/dL 06/26/2025 4:17 AM EDT [facility] Comment:Reference range not established for random specimen. Urine Urine specimen / Unknown 06/26/2025 3:30 AM EDT 06/26/2025 3:38 AM EDT Lenamax Perez DINING ROOM TABLES SET UP ATTENDANT URINE ORDERABLES Final Res ult Performing Organization Address [facility]/[place]IP [place] [address], [place] * (ABNORMAL) B-Hydroxybutyrate (06/26/2025 3:21 AM EDT) B-Hydroxybutyrate 0.73(H) <0.28 mmol/L 06/26/2025 9:23 AM EDT [facility] Comment: In the presence of uncontrolled diabetes, serum beta-hydroxybutyrate levels greater than or equal to 3.80 mmol/L (patients age 16 and over) or greater than or equal to 3.00 mmol/L (patients under age 16) support a clinical diagnosis of Diabetic Ketoacidosis (DKA) - Ref: Diabetes Care 31: 643 (2007). 06/26/2025 3:21 AM EDT 06/26/2025 3:28 AM EDT Lena Perez APRN LAB BLOOD ORDERABLES Final Result Performing Organization Address [facility] Co de Phone Number [facility] [address] [place] [address], * (ABNORMAL) Hemoglobin A1C with Estimated Average Glucose (06/26/2025 3:21 AM EDT) Hemoglobin A1C 7.3(H) <5.7 % 06/26/2025 11:38 AM EDT [facility] Comment: A1c% Interpretation 5.7 - 6.0 Increase risk of diabetes 6.1 - 6.4 Higher risk of diabetes > or = 6.5 Consistent with diabetes Diabetes Care, 33(Supp 1):S1-S61, 2009 Estimated Average Glucose 163 mg/dL 06/26/2025 11:38 AM EDT [facility] Blood Blood specimen / Unknown 06/26/2025 3:21 AM EDT 06/26/2025 3:28 AM EDT Lena Perez APRN LAB BLOOD ORDERABLES Final Result Performing Organization Address [facility] [place] [address], [place] [phone] * Partial Thromboplastin Time (PTT) (06/26/2025 3:21 AM EDT) Anticoagulant IV HEPARIN, UNFRACTIONATED 06/26/2025 2:43 AM EDT [facility] Partial Thromboplastin Time (PTT) 37 26 - 37 seconds 06/26/2025 3:37 AM EDT [facility] Blood Blood specimen / Unknown 06/26/2025 3:21 AM EDT 06/26/2025 3:28 AM EDT Lena Perez DINING ROOM TABLES SET UP ATTENDANT LAB BLOOD ORDERABLES Final Result [facility] [address] [place] [address], [place] * (ABNORMAL) PROTIME-INR (06/26/2025 3:21 AM EDT) Pathologist [facility] Anticoagulant OTHER AGENT OR UNKNOWN 06/26/2025 2:43 AM EDT [facility] Prothrombin Time (PT) 15.2(H) 10.0 - 13.5 seconds 06/26/2025 3:37 AM EDT [facility] INR 1.3 06/26/2025 3:37 AM EDT [facility] Comment:INR Therapeutic Rang es: Standard dose anticoagulant 2.0 to 3.0, High dose anticoagulant 2.5-3.5. Blood Blood specimen / Unknown 06/26/2025 3:21 AM EDT 06/26/2025 3:28 AM EDT Lena Perez DINING ROOM TABLES SET UP ATTENDANT LAB BLOOD ORDERABLES Final Result Performing Organization Address City/[facility]/ZIP Co de Phone Number [facility] [address] [place] [address], [place] * (ABNORMAL) TSH, HIGHLY SENSITIVE (06/26/2025 3:21 AM EDT) [facility] TSH, Highly Sensitive 0.43(L) 0.48 - 4.17 mIU/L 06/26/2025 3:57 AM EDT [facility] Blood Blood specimen / Unknown 06/26/2025 3:21 AM EDT 06/26/2025 3:28 AM EDT Lenamax Perez DINING ROOM TABLES SET UP ATTENDANT LAB BLOOD ORDERABLES Final Result [facility] [address] [place] [address], [place] * (ABNORMAL) Phosphorus (06/26/2025 3:21 AM EDT) Phosphorus 6.2(H) 2.4 - 5.1 mg/dL 06/26/2025 3:58 AM EDT [facility] Blood Blood specimen / Unknown 06/26/2025 3:21 AM EDT 06/26/2025 3:28 AM EDT us Lena Iacoraaldano DINING ROOM TABLES SET UP ATTENDANT LAB BLOOD ORDERABLES Final Result Performing Organization Address City/[facility]/ZIP [place] [address], [place] * Magnesium (06/26/2025 3:21 AM EDT) Magnesium 2.2 1.6 - 2.6 mg/dL 06/26/2025 3:58 AM EDT [facility] Blood Blood specimen / Unknown 06/26/2025 3:21 AM EDT 06/26/2025 3:28 AM EDT us Lena Iacoraaldano DINING ROOM TABLES SET UP ATTENDANT LAB BLOOD ORDERABLES Final Result Performing Organization Address [facility] [place] [address], [place] * LACTIC ACID, PLASMA (06/26/2025 3:21 AM EDT) Lactic Acid 0.9 0.5 - 1.9 mmol/L 06/26/2025 3:53 AM EDT [facility] Blood Blood specimen / Unknown 06/26/2025 3:21 AM EDT 06/26/2025 3:28 AM EDT us Lena Iarodríguezano DINING ROOM TABLES SET UP ATTENDANT LAB BLOOD ORDERABLES Final Result Performing Organization Address City/[facility] [place] [address], [place] * CREATINE KINASE (CK) (06/26/2025 3:21 AM EDT) Creatine Kinase (CK) 76 46 - 171 U/L 06/26/2025 11:31 AM EDT [facility] 06/26/2025 3:21 AM EDT 06/26/2025 3:28 AM EDT us Lena Perez APRN LAB BLOOD ORDERABLES Final Result [facility] [address] [place] [address], [place] * (ABNORMAL) LIPID PANEL (06/26/2025 3:21 AM EDT) Cholesterol, Total 75 <200 mg/dL 2024 3:58 AM EDT [facility] Triglycerides 126 <150 mg/dL 06/26/2025 3:58 AM EDT [facility] Cholesterol, HDL 18(L) >60 mg/dL 06/26/20 3:58 AM EDT [facility] Estimated LDL 32 <130 mg/dL 06/26/2025 3:58 AM EDT [facility] Comment: Estimated LDL was calculated using the Friedewald equation NCEP Guidelines: < 100 mg/dL Optimal 100 - 129 mg/dL Near Optimal/Above Optimal 130 - 159 mg/dL Borderline High 160 - 189 mg/dL High >/= 190 mg/dL Very High Cholesterol/HDL Ratio 4.2 0.0 - 5.0 Ratio 06/26/2025 3:58 AM EDT [facility] Comment: Relative Risk Ratio - Male Ratio - Female 0.5 3.4 3.3 1.0 5.0 4.4 2.0 9.6 7.1 3.0 23.4 11.0 Blood Blood specimen / Unknown 06/26/2025 3:21 AM EDT 06/26/2025 3:28 AM EDT us Lena Perez APRN LAB BLOOD ORDERABLES Final Result [facility] [address] [place] [address], [place] * (ABNORMAL) Comprehensive Metabolic Panel (06/26/2025 3:21 AM EDT) Glucose 110(H) 74 - 106 mg/dL 06/26/2025 3:58 AM EDT [facility] Comment:Fasting: <100 mg/dL, Non-Fasting: <200 mg/dL (ADA 2004) Blood Urea Nitrogen (BUN) 94(H) 9 - 23 mg/dL 06/26/2025 3:58 AM EDT [facility] Creatinine 4.59(H) 0.70 - 1.30 mg/dL 06/26/2025 3:58 AM EDT [facility] eGFR 13(L) >59 06/26/2025 3:58 AM EDT [facility] Comment:CKD-EPI (2020) in mL /min/1.73 sq meters. Sodium 145 136 - 145 mmol/L 06/26/2025 3:58 AM EDT [facility] Potassium 4.1 3.4 - 4.5 mmol/L 06/26/2025 3:58 AM EDT [facility] Chloride 110(H) 98 - 107 mmol/L 06/26/2025 3:58 AM EDT [facility] CO2 20 20 - 31 mmol/L 06/26/2025 3:58 AM EDT [facility] Calcium 8.5(L) 8.7 - 10.5 mg/dL 06/26/2025 3:58 AM EDT [facility] Alkaline Phosphatase 99 45 - 128 U/L 06/26/2025 3:58 AM EDT [facility] Aspartate Aminotrans (AST) 30 <34 U/L 06/26/2025 3:58 AM EDT [facility] Alanine Aminotrans (ALT) 29 10 - 49 U/L 06/26/2025 3:58 AM EDT [facility] Bilirubin, Total 0.6 0.3 - 1.2 mg/dL 06/26/2025 3:58 AM EDT [facility] Protein, Total 6.0 5.7 - 8.2 g/dL 06/26/2025 3:58 AM EDT [facility] Albumin 3.5 3.4 - 4.8 g/dL 06/26/2025 3:58 AM EDT [facility] BUN/Creatinine Ratio 20 10.0 - 25.0 Ratio 06/26/2025 3:58 AM EDT [facility] Globulin 2.5 1.5 - 3.9 g/dL 06/26/2025 3:58 AM EDT [facility] Albumin/Globulin Ratio 1.4(L) 1.5 - 2.5 Ratio 06/26/2025 3:58 AM EDT [facility] Anion Gap 16(H) 5 - 15 06/26/2025 3:58 AM EDT [facility] Blood Blood specimen / Unknown 06/26/2025 3:21 AM EDT 06/26/2025 3:28 AM EDT Lena Perez APRN LAB BLOOD ORDERABLES Final Result Performing Organization Address [facility]/ZIP Co de Phone Number [facility] [address] [place] [address], [place] * KAYCE Archive for reference only [place] (06/25/2025 11:15 PM EDT) Narrative [facility] 06/25/2025 11:13 PM EDT This order has been auto-finalized and does not contain a result. us File Room Provider IMG DIGITIZE FILMS Final Resu lt [place] [phone] * CT Chest Archive for Reference Only (06/25/2025 11:12 PM EDT) Narrative [facility] 06/25/2025 11:12 PM EDT This study has been auto finalized and does not contain a result. us File Room Provider IMG DIGITIZE FILMS Final Resu lt Performing Organization Address [facility] de Phone Number [facility] [phone] * CT Head Archive for Reference Only (06/25/2025 11:12 PM EDT) Narrative [facility] 06/25/2025 11:12 PM EDT This study has been auto finalized and does not contain a result. us File Room Provider IMG DIGITIZE FILMS Final Resu lt Performing Organization Address [facility] de Phone Number [facility] [phone] * CT Abdomen Archive for Reference Only (06/25/2025 11:12 PM EDT) [facility] 06/25/2025 11:12 PM EDT This study has been auto finalized and does not contain a result. us File Room Provider IMG DIGITIZE FILMS Final Resu lt Performing Organization Address [facility] de Phone Number [facility] [phone] * CR Chest Archive for Reference only (06/25/2025 11:11 PM EDT) [facility] 06/25/2025 11:11 PM EDT This study has been auto finalized and does not contain a result. us File Room Provider IMG DIGITIZE FILMS Final Resu lt Performing Organization Address [facility] de Phone Number [facility] [phone] from Last 3 Months Insurance [facility] MEDIC[facility] Advance Directives * Full Code (Latest Code Status on File) Date Activated Date Inactivated Comments 06/26/2025 2:38 AM Care Teams Social Insurance Adviser Relationship Specialty Start Date End Date Shane Vigil MD [address] [place] [address] PCP - General Internal Medicine 06/25/25
== END 2025-07-07 15:20 | disposition home or self-care (01) ==
LOC: HO.HNS 14:06
PROVIDERS: PCP Family Medicine; Visit Provider Physician Assistant
DX: Z98.1 Arthrodesis status (principal)
CPT/HCPCS: 99024

== ENCOUNTER → 2025-07-07 14:05 | Outpatient (BNVA) | payer OTHER, SELFPAY | PROVIDERS: PCP Family Medicine; Visit Provider Physician Assistant | DX: Z98.1 Arthrodesis status (principal) | CPT/HCPCS: 99212 ==

== ENCOUNTER 2025-08-19 08:37 | Outpatient (REF) | payer OTHER, SELFPAY ==
--- NOTE | ~2025-08-19 | XR_ITS ---
EXAMINATION: X-ray lumbar spine CLINICAL INFORMATION: Arthrodesis status COMPARISON: X-ray 03/08/2025.. Fluoroscopy 06/16/2025 TECHNIQUE: 4 views, including flexion and extension views. FINDINGS: Mild dextroscoliosis. Redemonstrated is posterior fusion at L2-L5, with transpedicular screws, stabilization rods. Intervertebral spacers at L2-3, L3-4, L4-5. Hardware is intact. No suspicious perihardware lucencies. No instability is identified on the flexion/extension views. No acute fracture seen. There are spondylosis in the visualized spine otherwise. Moderate-severe L1-2 disc degeneration.. Bilateral SI joints are intact. Aortic vascular calcification. XR/XR lumbar spine 4V min IMPRESSION: Postsurgical changes from posterior spinal fusion of L2-5. No evidence of hardware complications. No evidence of acute fracture. Electronically signed by: Jesse Amador MD 08/19/2025 04:47 PM EST
== END 2025-08-19 08:38 | disposition home or self-care (01) ==
LOC: HO.HOSX 08:37
PROVIDERS: Visit Provider Physician Assistant
DX: R25.2 Cramp and spasm (principal); M54.50 Low back pain, unspecified; Z98.1 Arthrodesis status
CPT/HCPCS: 72110; 99212

== ENCOUNTER 2025-08-19 08:53 | Outpatient (AMB) | payer OTHER, SELFPAY ==
--- NOTE | 2025-08-19 09:09 | A.SPINEOV_ITS ---
Intake Visit Reasons: 2nd post op with xrays Intake Note: Mr. Rashid is here today for his 2nd post op with x-rays. Ammonia Refrigeration Technician Required: No Allergies meperidine (From DEMEROL) Allergy (Intermediate, Verified 07/07/25 14:49) nausea/vomiting/lightheadedness hydrochlorothiazide Allergy (Unknown, Verified 07/07/25 14:49) Unknown per patient-allergy listed on [facility] Assessment & Plan Assessment & Plan (1) S/P lumbar spinal fusion: Code(s): Z98.1 - Arthrodesis status Category: Surgical Plan Rosendo is a pleasant 69 year old male who underwent L2-3 Transkambin Lumbar fusion, L3-5 oblique lumbar interbody fusion on 06/16/25. He had a complicated postoperative course, see previous office visit notes for specifics regarding this. He obtain a set of dynamic lumbar spine x-rays during this visit which show stable placement of his fusion construct with no changes from prior imaging. He reports that despite his postoperative complications he has been doing very well since surgery. He feels his pain has improved although though still reports some low-grade low back pain, and some cramping in his bilateral legs especially with increased activity. We discussed the possibility of having him go to physical therapy, however he does not seem interested in doing this. No new neurological deficits. The patient ambulates well with the assistance of his walker. He is able to stand independently without any assistive devices. He rises from a seated position without much difficulty. His posterior and lateral incision sites are closed and well healed. I would like to follow up with Rosendo again 1 year from his surgery. We will obtain a CT scan 10 months out from surgery to evaluate for fusion progress. Rivera Estrada MD,PhD [facility] Orders: Orders XR lumbar spine 4V min Today Z98.1 - Arthrodesis status CT lumbar spine wo IV con 06/07/26 Z98.1 - Arthrodesis status Coding Level of Care Code Global (52175) Diagnoses S/P lumbar spinal fusion Z98.1
--- OUTSIDE RECORDS SUMMARY | 2025-08-19 09:35 | XMS_ITS | Clinical Summary ---
Author Organization Formerly [facility] Address [address] [place] [address] Care Team Providers Care Car Sander Name Role Phone Shane Vigil MD Primary [...] mg total) by mouth daily. Active lisinopril (PRINIVIL,ZeSTRIL ) 40 MG tablet Take 1 tablet (40 mg total) by mouth daily. Active oxyCODONE (OXY-IR) 5 MG capsule Take 1 capsule (5 mg total) by mouth 4 times daily (every 6 hours) as needed for severe pain. Max Daily Amount: 20 mg Active apixaban (ELIQUIS) 5 MG tabletIndications :Pulmonary embolus, left (HCC),Acute deep vein thrombosis (DVT) of proximal vein of lower extremity, unspecified laterality (HCC) Take 10 mg twice daily for 5 days then continue 5 mg twice daily 90 tablet 5 Active metoPROLOL SUCCINATE (TOPROL-XL) 50 MG 24 hr tabletIndications :Primary hypertension Take 0.5 tablets (25 mg total) by mouth daily. Active amLODIPine (NORVASC) 5 MG tabletIndications :Primary hypertension Take 2 tablets (10 mg total) by mouth daily. Active apixaban (ELIQUIS) 5 MG tabletIndications :Pulmonary embolus, left (HCC) Take 1 tablet (5 mg total) by mouth 2 (two) times a day. 60 tablet 09/01/20 25 Active Active Problems Problem Noted Date Diagnosed Date [...] day History of CAD (coronary artery disease) 025 Assessment & Plan (06/28/2025 9:11 AM EDT): [...] 1:53 PM EDT Hospital Encounter [facility] [address] [phone] Shane Vigil MD Samuel, Jemi, MD Uzoamaka, Chinyere, MD Pulmonary embolus, left (HCC) (Primary Dx); Acute deep vein thrombosis (DVT) of proximal vein of lower extremity, unspecified laterality (HCC); Primary hypertension Discharge Disposition: Home or Self Care 06/26/2025 Travel 06/25/2025 11:25 PM EDT Ancillary Procedure [facility]iology [address] [place] [phone] Provider, File Room 06/25/2025 11:20 PM EDT Ancillary Procedure [facility] [address] [place] [phone] Provider, File Room 06/25/2025 11:15 PM EDT Ancillary Procedure [facility] [address] [place] [phone] Provider, File Room 06/25/2025 11:15 PM EDT Ancillary Procedure [facility] [address] [place] [phone] Provider, File Room 06/25/2025 11:15 PM EDT Ancillary Procedure [facility] [address] [place] [phone] Provider, File Room from Last 3 Months Social History Tobacco Use Types Packs/Day Years Used Date Smoking Tobacco: Former Cigarettes Tobacco Cessation:Counseling Given: Not Answered [facility] Utilities Answer Date Recorded In the past 12 months has Moni, [employer], or water [employer] threatened to shut off services in your [...] any time in the past 12 m [facility], were you homeless or living in a jail (including now)? No 06/28/2025 Sex and Gender [...] 50+ (1 of 1 - PCV) 2005 RSV Vaccine 50 years and old er and Patients (1 - Risk 50-74 years 1-dose series) 2005 Zoster (Shingles) Vaccine (1 of 2) 2005 Abdominal Aortic Aneurysm (A AA) Screening 2020 [...] AM EDT LACTIC ACID, PLASMA Routine 06/26/2025 3 :21 AM EDT HEMOGLOBIN A1C WITH ESTIMATED AVERAGE [...] with the findings. us Nancy Pereira MD [facility] US ORDERABLES Final Result * Heparin Assay (Anti Xa) (06/28/2025 5:42 AM EDT) Only the most recent of4 resultswithin the time period is included. Anti Xa 0.31 IU/mL 06/28/2025 6:16 AM EDT [facility] Comment: (NOTE) Heparin Thromboembolic/Standard/Full Dose Protocol: [...] IV HEPARIN, UNFRACTIONATED 06/27/2025 9:30 PM EDT [facility] Blood Blood specimen / Unknown 06/28/2025 5:42 AM EDT 06/28/2025 6:01 AM EDT us Filipe Walker MD LAB BLOOD ORDERABLES Final Resul t [facility] [address] [place] [address], [place] * (ABNORMAL) Complete Blood Count, WITHOUT, Differential (06/28/2025 5:42 AM EDT) Only the most recent of2 resultswithin the time period is included. White Blood Cell Count 12.8(H) 4.0 - 11.0 Thou/uL 06/28/2025 6:08 AM EDT [facility] Platelet Count 219 150 - 450 Thou/uL 06/28/2025 6:08 AM EDT [facility] Hemoglobin 10.5(L) 13.0 - 17.7 g/dL 06/28/2025 6:08 AM EDT [facility] Hematocrit 32.7(L) 39.0 - 54.0 % 06/28/2025 6:08 AM EDT [facility] Red Blood Cell Count 3.55(L) 4.50 - 6.20 Mil/uL 06/28/2025 6:08 AM EDT [facility] MCV 92 80 - 100 fL 06/28/2025 6:08 AM EDT [facility] MCH 29.6 27.0 - 31.0 pg 06/28/2025 6:08 AM EDT [facility] MCHC 32.1 30.0 - 36.0 g/dL 06/28/2025 6:08 AM EDT [facility] RDW 13.2 11.5 - 14.5 % 06/28/2025 6:08 AM EDT [facility] MPV 10.3 7.5 - 12.5 fL 06/28/2025 6:08 AM EDT [facility] Blood Blood specimen / Unknown 06/28/2025 5:42 AM EDT 06/28/2025 6:01 AM EDT us Nancy Pereira MD LAB BLOOD ORDERABLES Final Resul t [facility] [address] [place] [address], * (ABNORMAL) Basic Metabolic Panel (06/28/2025 5:42 AM EDT) Only the most recent of2 resultswithin the time period is included. Glucose 147(H) 74 - 106 mg/dL 06/28/2025 6:40 AM EDT [facility] Comment:Fasting: <100 mg/dL, Non-Fasting: <200 mg/dL (ADA 2004) Blood Urea Nitrogen (BUN) 21 9 - 23 mg/dL 06/28/2025 6:41 AM EDT [facility] Creatinine 1.14 0.70 - 1.30 mg/dL 06/28/2025 6:41 AM EDT [facility] eGFR 70 >59 06/28/2025 6:41 AM EDT [facility] Comment:CKD-EPI (2020) in mL /min/1.73 sq meters. Sodium 149(H) 136 - 145 mmol/L 06/28/2025 6:40 AM EDT [facility] Potassium 4.0 3.4 - 4.5 mmol/L 06/28/2025 6:40 AM EDT [facility] Chloride 115(H) 98 - 107 mmol/L 06/28/2025 6:40 AM EDT [facility] CO2 21 20 - 31 mmol/L 06/28/2025 6:40 AM EDT [facility] Anion Gap 13 5 - 15 06/28/2025 6:40 AM EDT [facility] Calcium 8.7 8.7 - 10.5 mg/dL 06/28/2025 6:40 AM EDT [facility] BUN/Creatinine Ratio 18 10.0 - 25.0 Ratio 06/28/2025 6:41 AM EDT [facility] Blood Blood specimen / Unknown 06/28/2025 5:42 AM EDT 06/28/2025 6:01 AM EDT us Anila Toribio MD LAB BLOOD ORDERABLES Final Result [facility] [address] [place] [address], * Troponin I, High Sensitivity (06/27/2025 1:30 PM EDT) Only the most recent of2 resultswithin the time period is included. Pathologist [facility] Troponin I, High Sensitivity 17 <54 ng/L 06/27/2025 2:12 PM EDT [facility] Delta (HS Troponin I) NO PREVIOUS RESULT 06/27/2025 2:12 PM EDT [facility] Blood Blood specimen / Unknown 06/27/2025 1:30 PM EDT 06/27/2025 1:44 PM EDT us Nancy Pereira MD LAB BLOOD ORDERABLES Final Resul t [facility] [address] [place] [address], * ECG 12 lead (7 AM) (06/27/2025 8:19 AM EDT) Only the most recent of3 resultswithin the time period is included. [facility] Ventricular rate 71 BPM EKG [facility] Atrial rate 71 BPM EKG [facility] P-R interval 156 ms EKG [facility] QRS duration 94 ms EKG [facility] Q-T interval 428 ms EKG [facility] QTC calculation (Bazett) 466 ms EKG [facility] P axis 58 degrees EKG [facility] R axis 38 degrees EKG [facility] T axis 1 degrees EKG [facility] 06/27/2025 8:19 AM EDT Narrative EKG [facility] - 06/27/2025 8:21 AM EDT Normal sinus rhythm T wave abnormality, consider inferior ischemia Abnormal ECG When compared with ECG of 26-Jun-2025 11:38, T wave inversion no longer evident in Anterior leads QT has shortened Confirmed by MD Mazariegos Charles ([id number]) on 06/27/2025 8:21:05 AM Procedure Note Domingo Mazariegos MD - 06/27/2025 Normal sinus rhythm T wave abnormality, consider inferior ischemia Abnormal ECG When compared with ECG of 26-Jun-2025 11:38, T wave inversion no longer evident in Anterior leads QT has shortened Confirmed by MD Mazariegos Charles ([id number]) on 06/27/2025 8:21:05 AM us Shane Vigil MD ECG ORDERABLES Final Re sult EKG [facility] * XR Chest 1 view-Portable (06/26/2025 11:39 [...] No evidence of pulmonary edema. Procedure Note Kirt Rai MD - 06/27/2025 CLINICAL INDICATION: PNA [...] 3:49 PM EDT 06/26/2025 3:56 PM EDT us Nancy Pereira MD POINT OF CARE TEST [...] B-type Natriuretic Peptide (06/26/2025 11:16 AM EDT) B-Type Natriuretic Peptide 50 0 - 99 pg/mL 06/26/2025 11:47 AM EDT [facility] Blood Blood specimen / Unknown 06/26/2025 11:16 AM EDT 06/26/2025 11:18 AM EDT Wendy Miller PA-C LAB BLOOD ORDERABLES Final Result [facility] [address] [place] [address], [place] * Blood Culture (06/26/2025 8:58 AM EDT) Culture Sterile after 5 days 07/01/2025 7:31 AM EDT [facility] Blood Blood specimen / Unknown 06/26/2025 8:58 AM EDT 06/26/2025 9:48 AM EDT Comment:Blood Shane Vigil MD LAB BLOOD ORDERABLES Fin al Result [facility] [address] [place] [address], [place] * Urine Culture (06/26/2025 8:26 AM EDT) Culture Sterile or less than 1000 col/mL 06/27/2025 10:27 AM EDT [facility] Urine (Indwelling Urinary Catheter) 06/26/2025 8:26 AM EDT 06/26/2025 8:47 AM EDT Comment:Urine us Shane Vigil MD MICROBIOLOGY - GENERAL O RDERABLES Final Result [facility] [address] [facility] [place] [address], [place] * (ABNORMAL) Urinalysis with Reflex to Microscopic (06/26/2025 3:30 AM EDT) Color [place] 06/26/2025 4:02 AM EDT [facility] Clarity Cloudy 06/26/2025 4:02 AM EDT [facility] Specific [place] 1.015 1.005 - 1.030 06/26/2025 4:02 AM EDT [facility] pH 5.0 5.0 - 8.0 06/26/2025 4:02 AM EDT [facility] Leukocyte Esterase Small(A) Negative 06/26/2025 4:02 AM EDT [facility] Nitrite Unable to perform chemistries due to color of urine(A) Negative 06/26/2025 4:02 AM EDT [facility] Protein Unable to perform chemistries due to color of urine(A) Negative mg/dL 06/26/2025 4:02 AM EDT [facility] Glucose Negative Negative mg/dL 06/26/2025 4:02 AM EDT [facility] Ketones Negative Negative mg/dL 06/26/2025 4:02 AM EDT [facility] Blood Large(A) Negative 06/26/2025 4:02 AM EDT [facility] Bilirubin Unable to perform chemistries due to color of urine(A) Negative 06/26/2025 4:02 AM EDT [facility] RBC >25(H) 0 - 4 per hpf 06/26/2025 4:02 AM EDT [facility] WBC >25(H) 0 - 4 per hpf 06/26/2025 4:02 AM EDT [facility] Epithelial Cells 0 per hpf 06/26/2025 4:02 AM EDT [facility] Casts 2 0 - 4 per lpf 06/26/2025 4:02 AM EDT [facility] Comment:Casts are hyaline un less otherwise noted. Urine Voided urine specimen / Unknown 06/26/2025 3:30 AM EDT 06/26/2025 3:38 AM EDT us Lena Perez BLEACH PACKER URINE ORDERABLES Final Res ult Performing Organization Address [facility]/[place] [address], [place] * Urea Nitrogen, Random Urine (06/26/2025 3:30 AM EDT) Urea Nitrogen, Random Urine 731 mg/dL 06/26/2025 4:17 AM EDT [facility] Comment:Reference range not established for random specimen. Urine Urine specimen / Unknown 06/26/2025 3:30 AM EDT 06/26/2025 3:38 AM EDT us Lena Perez BLEACH PACKER URINE ORDERABLES Final Res ult Performing Organization Address City/[facility]/[place] [address], [place] * SODIUM, URINE, RANDOM (06/26/2025 3:30 AM EDT) Sodium, Urine Random 40 mmol/L 06/26/2025 4:17 AM EDT [facility] Comment:Reference range not established for random specimen. Urine Urine specimen / Unknown 06/26/2025 3:30 AM EDT 06/26/2025 3:38 AM EDT us Lenamax Curranano BLEACH PACKER URINE ORDERABLES Final Res ult Performing Organization Address City/[facility]/[place] [address], [place] * CREATININE, URINE, RANDOM (06/26/2025 3:30 AM EDT) Creatinine, Urine, Random 118 mg/dL 06/26/2025 4:17 AM EDT [facility] Comment:Reference range not established for random specimen. Urine Urine specimen / Unknown 06/26/2025 3:30 AM EDT 06/26/2025 3:38 AM EDT Lena Perez APRN URINE ORDERABLES Final Res ult Performing Organization Address [facility] [place] [address], [place] * (ABNORMAL) B-Hydroxybutyrate (06/26/2025 3:21 AM EDT) B-Hydroxybutyrate 0.73(H) <0.28 mmol/L 06/26/2025 9:23 AM EDT [facility] Comment: In the presence of uncontrolled diabetes, serum beta-hydroxybutyrate levels greater than or equal to 3.80 mmol/L (patients age 16 and over) or greater than or equal to 3.00 mmol/L (patients under age 16) support a clinical diagnosis of Diabetic Ketoacidosis (DKA) - Ref: Diabetes Care 31: 643 (2007). 06/26/2025 3:2 1 AM EDT 06/26/2025 3:28 AM EDT Lena Perez APRN LAB BLOOD ORDERABLES Final Result Performing Organization Address [facility] [place] [address], * (ABNORMAL) Hemoglobin A1C with Estimated Average Glucose (06/26/2025 3:21 AM EDT) Hemoglobin A1C 7.3(H) <5.7 % 06/26/2025 11:38 AM EDT [facility] Comment: A1c% Interpretation 5.7 - 6.0 Increase risk of diabetes 6.1 - 6.4 Higher risk of diabetes > or = 6.5 Consistent with diabetes Diabetes Care, 33(Supp 1):S1-S61, 2009 Estimated Average Glucose 163 mg/dL 06/26/2025 11:38 AM EDT [facility] Blood Blood specimen / Unknown 06/26/2025 3:21 AM EDT 06/26/2025 3:28 AM EDT Lena Perez APRN LAB BLOOD ORDERABLES Final Result [address] [address], [address] [address] * Partial Thromboplastin Time (PTT) (06/26/2025 3:21 AM EDT) Anticoagulant IV HEPARIN, UNFRACTIONATED 06/26/2025 2:43 AM EDT [facility] Partial Thromboplastin Time (PTT) 37 26 - 37 seconds 06/26/2025 3:37 AM EDT [facility] Blood Blood specimen / Unknown 06/26/2025 3:21 AM EDT 06/26/2025 3:28 AM EDT Lena Perez APRN LAB BLOOD ORDERABLES Final Result [facility] [address] [place] [address], * (ABNORMAL) PROTIME-INR (06/26/2025 3:21 AM EDT) Anticoagulant OTHER AGENT OR UNKNOWN 06/26/2025 2:43 AM EDT [facility] Prothrombin Time (PT) 15.2(H) 10.0 - 13.5 seconds 06/26/2025 3:37 AM EDT [facility] INR 1.3 06/26/2025 3:37 AM EDT [facility] Comment:INR Therapeutic Rang es: Standard dose anticoagulant 2.0 to 3.0, High dose anticoagulant 2.5-3.5. Blood Blood specimen / Unknown 06/26/2025 3:21 AM EDT 06/26/2025 3:28 AM EDT us Lena Chris BLEACH PACKER LAB BLOOD ORDERABLES Final Result Performing Organization Address [facility]/ZIP Co de Phone Number [facility] [address] [place] [address], [place] * (ABNORMAL) TSH, HIGHLY SENSITIVE (06/26/2025 3:21 AM EDT) TSH, Highly Sensitive 0.43(L) 0.48 - 4.17 mIU/L 06/26/2025 3:57 AM EDT [facility] Blood Blood specimen / Unknown 06/26/2025 3:21 AM EDT 06/26/2025 3:28 AM EDT Lenamax Perez BLEACH PACKER LAB BLOOD ORDERABLES Final Result Performing Organization Address [facility] Co de Phone Number [facility] [address] [place] [address], [place] * (ABNORMAL) Phosphorus (06/26/2025 3:21 AM EDT) Phosphorus 6.2(H) 2.4 - 5.1 mg/dL 06/26/2025 3:58 AM EDT [facility] Blood Blood specimen / Unknown 06/26/2025 3:21 AM EDT 06/26/2025 3:28 AM EDT Lena Iajuan BLEACH PACKER LAB BLOOD ORDERABLES Final Result Performing Organization Address City/[facility]/ZIP Co de Phone Number [facility] [address] [place], [place] [id number], [place] * Magnesium (06/26/2025 3:21 AM EDT) Magnesium 2.2 1.6 - 2.6 mg/dL 06/26/2025 3:58 AM EDT [facility] Blood Blood specimen / Unknown 06/26/2025 3:21 AM EDT 06/26/2025 3:28 AM EDT Lenamax Perez BLEACH PACKER LAB BLO[place] [address], [place] * LACTIC ACID, PLASMA (06/26/2025 3:21 AM EDT) Lactic Acid 0.9 0.5 - 1.9 mmol/L 06/26/2025 3:53 AM EDT [facility] Blood Blood specimen / Unknown 06/26/2025 3:21 AM EDT 06/26/2025 3:28 AM EDT us Lena Perez BLEACH PACKER LAB BLOOD [place] [address], [place] * CREATINE KINASE (CK) (06/26/2025 3:21 AM EDT) Creatine Kinase (CK) 76 46 - 171 U/L 06/26/2025 11:31 AM EDT [facility] 06/26/2025 3:21 AM EDT 06/26/2025 3:28 AM EDT Lenamax Perez BLEACH PACKER LAB BLOOD ORDERABLES Final Result [facility] [address] [place] [address], [place] * (ABNORMAL) LIPID PANEL (06/26/2025 3:21 AM EDT) Cholesterol, Total 75 <200 mg/dL 2024 3:58 AM EDT [facility] Triglycerides 126 <150 mg/dL 06/26/2025 3:58 AM EDT [facility] Cholesterol, HDL 18(L) >60 mg/dL 06/26/20 3:58 AM EDT [facility] Estimated LDL 32 <130 mg/dL 06/26/2025 3:58 AM EDT [facility] Comment: Estimated LDL was calculated using the Friedewald equation NCEP Guidelines: < 100 mg/dL Optimal 100 - 129 mg/dL Near Optimal/Above Optimal 130 - 159 mg/dL Borderline High 160 - 189 mg/dL High >/= 190 mg/dL Very High Cholesterol/HDL Ratio 4.2 0.0 - 5.0 Ratio 06/26/2025 3:58 AM EDT [facility] Comment: Relative Risk Ratio - Male Ratio - Female 0.5 3.4 3.3 1.0 5.0 4.4 2.0 9.6 7.1 3.0 23.4 11.0 Blood Blood specimen / Unknown 06/26/2025 3:21 AM EDT 06/26/2025 3:28 AM EDT Lena Perez APRN LAB BLOOD ORDERABLES Final Result [facility] [address] [place] [address], [place] * (ABNORMAL) Comprehensive Metabolic Panel (06/26/2025 3:21 AM EDT) Glucose 110(H) 74 - 106 mg/dL 06/26/2025 3:58 AM EDT [facility] Comment:Fasting: <100 mg/dL, Non-Fasting: <200 mg/dL (ADA 2005) Blood Urea Nitrogen (BUN) 94(H) 9 - 23 mg/dL 06/26/2025 3:58 AM EDT [facility] Creatinine 4.59(H) 0.70 - 1.30 mg/dL 06/26/2025 3:58 AM EDT [facility] eGFR 13(L) >59 06/26/2025 3:58 AM EDT [facility] Comment:CKD-EPI (2020) in mL /min/1.73 sq meters. Sodium 145 136 - 145 mmol/L 06/26/2025 3:58 AM EDT [facility] Potassium 4.1 3.4 - 4.5 mmol/L 06/26/2025 3:58 AM EDT [facility] Chloride 110(H) 98 - 107 mmol/L 06/26/2025 3:58 AM EDT [facility] CO2 20 20 - 31 mmol/L 06/26/2025 3:58 AM EDT [facility] Calcium 8.5(L) 8.7 - 10.5 mg/dL 06/26/2025 3:58 AM EDT [facility] Alkaline Phosphatase 99 45 - 128 U/L 06/26/2025 3:58 AM EDT [facility] Aspartate Aminotrans (AST) 30 <34 U/L 06/26/2025 3:58 AM EDT [facility] Alanine Aminotrans (ALT) 29 10 - 49 U/L 06/26/2025 3:58 AM EDT [facility] Bilirubin, Total 0.6 0.3 - 1.2 mg/dL 06/26/2025 3:58 AM EDT [facility] Protein, Total 6.0 5.7 - 8.2 g/dL 06/26/2025 3:58 AM EDT [facility] Albumin 3.5 3.4 - 4.8 g/dL 06/26/2025 3:58 AM EDT [facility] BUN/Creatinine Ratio 20 10.0 - 25.0 Ratio 06/26/2025 3:58 AM EDT [facility] Globulin 2.5 1.5 - 3.9 g/dL 06/26/2025 3:58 AM EDT [facility] Albumin/Globulin Ratio 1.4(L) 1.5 - 2.5 Ratio 06/26/2025 3:58 AM EDT [facility] Anion Gap 16(H) 5 - 15 06/26/2025 3:58 AM EDT [facility] Blood Blood specimen / Unknown 06/26/2025 3:21 AM EDT 06/26/2025 3:28 AM EDT Lena Curranabraham [place] LAB BLOOD ORDERABLES Final Result Performing Organization Address [facility] Co de Phone Number [facility] [address] [place] [address], [place] * KAYCE Archive for reference only [place] (06/25/2025 11:15 PM EDT) [facility] 06/25/2025 11:13 PM EDT This order has been auto-finalized and does not contain a result. File Room Provider IMG DIGITIZE FILMS Final Resu lt Performing Organization Address [facility] Co de Phone Number [facility] [phone] * CT Chest Archive for Reference Only (06/25/2025 11:12 PM EDT) [facility] 06/25/2025 11:12 PM EDT This study has been auto finalized and does not contain a result. File Room Provider IMG DIGITIZE FILMS Final Resu lt Performing Organization Address City/[facility]/ZIP Co de Phone Number [facility] [phone] * CT Head Archive for Reference Only (06/25/2025 11:12 PM EDT) [facility] 06/25/2025 11:12 PM EDT This study has been auto finalized and does not contain a result. us File Room Provider IMG DIGITIZE FILMS Final Resu lt Performing Organization Address [facility]/ZIP Co de Phone Number [facility] [phone] * CT Abdomen Archive for Reference Only (06/25/2025 11:12 PM EDT) Narrative [facility] - 06/25/2025 11:12 PM EDT This study has been auto finalized and does not contain a result. us File Room Provider IMG DIGITIZE FILMS Final Resu lt Performing Organization Address [facility] de Phone Number [facility] [phone] * CR Chest Archive for Reference only (06/25/2025 11:11 PM EDT) Narrative [facility] - 06/25/2025 11:11 PM EDT This study has been auto finalized and does not contain a result. us File Room Provider IMG DIGITIZE FILMS Final Resu lt Performing Organization Address [facility] de Phone Number [facility] [phone] from Last 3 Months Insurance [facility] [employer] MEDICARE Advance Directives * Full Code (Latest Code Status on File) Date Activated Date Inactivated Comments 06/26/2025 2:38 AM Care Teams Car Sander Relationship Specialty Start Date End Date Shane Vigil MD [address] [place] [address] PCP - General Internal Medicine 06/25/25
== END 2025-08-19 09:40 | disposition home or self-care (01) ==
LOC: HO.HNS 08:55
PROVIDERS: PCP Family Medicine; Referring Provider Physician Assistant; Visit Provider Physician Assistant
DX: Z98.1 Arthrodesis status (principal)
CPT/HCPCS: 99024

== ENCOUNTER → 2025-08-19 08:58 | Outpatient (BNV) | payer OTHER, SELFPAY | PROVIDERS: Visit Provider Radiology Diagnostic Ultrasound | DX: Z98.1 Arthrodesis status (principal) | CPT/HCPCS: 72110 ==